=== PATIENT | female | born 1940 | race Caucasian/White ===

== ENCOUNTER → 2017-11-16 | Outpatient (CLI) | payer MEDICARE | END | disposition home or self-care (01) | LOC: LABWHC1 17:02 | PROVIDERS: ATTEND Orthopaedic Surgery | DX: Z01.812 Encounter for preprocedural laboratory examination (principal) | CPT/HCPCS: 87070 ==

== ENCOUNTER 2017-12-18 06:06 | Inpatient (IN) | payer MEDICARE ==
[2017-12-11 11:59] VITALS: BMI 40.9
--- NOTE | 2017-12-17 09:31 | HP ---
HISTORY AND PHYSICAL CHIEF COMPLAINT: Right shoulder pain. HISTORY OF PRESENT ILLNESS: The patient is a 77-year-old, right-hand dominant, retired female who presents with progressive right shoulder pain, worsening over the past several years. She is having pain with overhead use and at night. It severely limits her. She has tried therapy in addition to medications with only partial temporary relief. She has a history of a previous right shoulder arthroscopy in December of 2013. PAST MEDICAL HISTORY: Significant for arthritis, hypertension, cervical cancer, renal insufficiency, and COPD. PAST SURGICAL HISTORY: Significant for appendectomy, hysterectomy, left wrist pinning, right shoulder arthroscopy. CURRENT MEDICATIONS: 1. Aspirin. 2. Losartan. 3. Simvastatin. 4. Nifedipine. ALLERGIES: SULFA and ERYTHROMYCIN. FAMILY HISTORY: Significant for heart disease and cancer. SOCIAL HISTORY: Negative for current tobacco or alcohol use. REVIEW OF SYSTEMS: Sixteen point review of systems otherwise reviewed and is noncontributory. PHYSICAL EXAMINATION: On examination, patient is approximately 5 foot 5, 245 pounds of endomorphic habitus. HEENT exam is nonfocal. Neck is supple. On examination of her right shoulder, she is tender about the anterior subacromial space. She has mild subacromial crepitus. Active range of motion, forward elevation 90 degrees, external rotation with arm at side 45 degrees, internal rotation to the buttock. Passively I am able to forward elevate her to 100 degrees. Motor strength is 5-/5 for external rotation with arm at side and abduction. Impingement test, Neer test, and Speed tests are positive. Her distal neurovascular exam otherwise appears intact in the right upper extremity. X-rays of the right shoulder obtained in the office show severe glenohumeral joint osteoarthrosis with flattening of the humeral head. The humeral head to acromial distance appears to be maintained. IMPRESSION: Right severe glenohumeral joint osteoarthrosis. RECOMMENDATIONS: I talked to the patient at length regarding her condition and treatment options. At this point, she is quite symptomatic and opts to proceed with surgery. We will plan to proceed with right total shoulder arthroplasty versus reverse total shoulder arthroplasty depending on the integrity of her rotator cuff. Risks and benefits were discussed at length in layman's terms. MMODL / IJN: [id number] /
[~2017-12-18 06:06] MED LIST: DEXAMETHASONE SOD PHOSPHATE 10 MG/ML 1 ML VIAL IV ONE; MIDAZOLAM 2 MG/2 ML VIAL IV PRN; ONDANSETRON 4 MG/2 ML VIAL IVP ONE; ceFAZolin IN SWFI 2 GM/20 ML SYRINGE IVP ONE
[2017-12-18] MEDS: LACTATED RINGERS 1,000 ML IV SCH (07:35)
[2017-12-18] MEDS ORDERED: LIDOCAINE 1% 20 ML VIAL (10MG/ML) FOR IV START INTRADERMA ONE (07:35)
[2017-12-18] MEDS ORDERED: NEOSTIGMINE 1 MG/ML 10 ML VIAL ONE (08:07)
[2017-12-18] MEDS ORDERED: GLYCOPYRROLATE 0.2 MG/ML 2 ML VIAL ONE (08:07)
[2017-12-18] MEDS ORDERED: PROPOFOL 10 MG/ML 20 ML VIAL IV ONE (08:07)
[2017-12-18] MEDS ORDERED: ROCURONIUM BROMIDE 10 MG/ML 10 ML VIAL IV ONE (08:07)
[2017-12-18] MEDS ORDERED: diphenhydrAMINE 50 MG/ML 1 ML VIAL ONE (08:07)
[2017-12-18] MEDS ORDERED: LIDOCAINE 1% INJ 10MG/ML (20 ML MDV) ONE (08:07)
[2017-12-18] MEDS ORDERED: PHENYLEPHRINE-0.9% NACL SYG 1 MG/10 ML SYRINGE ONE (08:07)
[2017-12-18] MEDS ORDERED: HYDROmorphone (PF) 1 MG/ML ONE (08:07)
[2017-12-18] MEDS ORDERED: SUCCINYLCHOLINE CHLORIDE 100 MG/5 ML SYR IV ONE (08:07)
[2017-12-18] MEDS ORDERED: fentaNYL (PF) 50 MCG/ML 2 ML AMP ONE (08:07)
[2017-12-18] MEDS ORDERED: ceFAZolin 3,000 MG in SODIUM CHLORIDE 0.9% IRRIGATIO 3,000 ML IRRIGATION ONE (08:30)
[2017-12-18] MEDS ORDERED: ONDANSETRON 4 MG/2 ML VIAL IVP PRN (10:34)
[2017-12-18] MEDS ORDERED: HYDROmorphone 1 MG/ML 1 ML SYRINGE IVP PRN (10:34)
[2017-12-18] MEDS: HYDROmorphone 0.5 MG/0.5 ML SYRINGE IVP PRN ×2 (11:02→11:11)
--- NOTE | 2017-12-18 11:06 | P.OP ---
Date of Procedure: 12/18/17 Preoperative Diagnosis: Right severe glenohumeral joint osteoarthrosis Postoperative Diagnosis: Same Procedure(s) Performed: Right reverse total shoulder arthroplasty Implants: Depuy Xtend size 12 press-fit humeral stem, size 1 eccentric epiphysis, 38 mm + 6 articular surface, 38 mm standard glenosphere with standard baseplate Anesthesia: CONNIE Surgeon: Pietro Norris Energy Management Specialist #1: Po Knox Estimated Blood Loss (ml): 200 Pathology: other (Humeral head) Condition: stable Disposition: PACU Indications for Procedure: The patient's a 77-year-old female who presents with progressive right shoulder pain secondary to osteoarthrosis despite conservative measures. A discussion of the risks and benefits of operative intervention versus continued conservative measures was made with the patient. She opted to proceed with surgery. Operative risks to include infection, neurovascular injury, development of blood clots, possible dislocation, possible component loosening and need for subsequent procedures was discussed. Informed consent was obtained. Operative Findings: As below Description of Procedure: The patient was brought to the operating room, and after induction general anesthesia was placed in a beachchair position. The bony prominences were appropriately padded. The right upper extremity was prepped and draped in normal fashion. A deltopectoral incision was made just lateral to the coracoid process and the deltopectoral groove. The skin was incised sharply. Subcutaneous tissues were divided bluntly. Electrocautery was used for hemostasis. The cephalic vein was identified and gently retracted laterally with the deltoid. The deltopectoral interval was bluntly developed. The upper one third of the pectoralis major was released to help facilitate exposure. The clavipectoral fascia was opened and the conjoined tendon gently retracted medially with the deltoid retracted laterally. Subdeltoid adhesions were bluntly dissected. The biceps was identified. The rotator interval was opened. The biceps was released and allowed to retract distally. A lesser tuberosity osteotomy was performed to help facilitate exposure. This was tagged with #2 Ethibond suture. The previous rotator cuff repair grossly overall. Intact. The head was then exposed. The inferior capsule was released to facilitate exposure. Significant collapse the head was noted. A starting hole was made in line with the Kress shaft and the canal reamed up to 12 mm. There is good distal fit and chatter. The cutting guide was then placed. A planned on 20 of retroversion. The humeral head cut was then made. The bone was removed. The inferior osteophytes were carefully removed as well. Attention was then paid towards the glenoid. A retractors placed posteriorly and the labrum was released from the 12:00 to 6 o'clock position anteriorly. A guidepin was placed slightly inferior tilting slightly inferior. The glenoid was then reamed down to a bleeding bony surface. Peripheral osteophytes were carefully removed. The central peg hole was drilled. A standard base plate was inserted. A superior and inferior screw was then inserted of the appropriate length. Good purchase was obtained. These were locking. A posterior screw the appropriate length it was nonlocking was placed. There was good purchase. The gleno sphere was inserted over a guide. This was fully seated. Attention was then paid towards preparing the proximal humerus. The broach was inserted and 20 of retroversion. The metaphysis was reamed with a size 1 reamer. A trial size 12 humeral stem with a size 1 epiphysis was then placed. I trialed with a 38 mm +6 trial articular surface was placed and the shoulder was gently reduced. It was taken through range of motion. It was felt to be stable in flexion and extension with internal and external rotation. I felt there was adequate soft tissue tension judging off the conjoined tendon. The shoulder was gently dislocated. The trial components were then removed. The humeral stem was again inserted in 20 of retroversion and was fully seated. There is good rotational stability. I did previously place #2, Ethibond suture for reattachment of the lesser tuberosity. The 38 mm +6 articular surface was gently impacted. The shoulder was again gently reduced. Again it was felt to be stable in flexion and extension with internal and external rotation. Again I felt there was adequate druze of soft tissue tension. Pulsatile lavage was utilized. The lesser tuberosity was repaired with #2 Ethibond suture. The deltopectoral interval was closed with interrupted 2-0 Vicryl sutures. The subcutaneous tissues were reapproximated with interrupted 2-0 Vicryl sutures. The skin was reprepped with 3-0 subcuticular Prolene suture. Steri-Strips were applied. A sterile dressing was applied in addition to a sling. The patient was awoken from general anesthesia and transferred to the recovery room in good condition. Manas YOUNG assisted during the major components of this case to include exposure, component insertion, positioning, and closure. No complications were incurred. Sponge and needle counts were correct at the end of the case. Blood loss was estimated at 200 mL.
--- NOTE | 2017-12-18 11:14 | XR ---
EXAMINATION TYPE: XR shoulder complete RT DATE OF EXAM: 12/18/2017 COMPARISON: NONE HISTORY: Postsurgical TECHNIQUE: One view is submitted. FINDINGS: Postsurgical change appears in near-anatomic alignment. Soft tissue edema and emphysema noted. IMPRESSION: 1. Postsurgical changes
--- NOTE | 2017-12-18 13:53 | P.ONQ ---
Anesthesiology Proc Note - PNB - Peripheral Nerve Block Performed Right Interscalene Single Time Out Performed: Yes Procedure Start Time: :30 Procedure Stop Time: :34 Indication: Acute Post-Operative Pain, Requested by physician Sedation Type: Sedate with meaningful contact maintained Preparation: Sterile Prep Position: Supine Needle Size: 50mm (2") Needle Gauge: 21 Technique: Ultrasound Injectate: 0.5% Ropivacaine (see comment for volume) (ropi .5% 30cc) Blood Aspirated: No Pain Paresthesia on Injection Noted: No Resistance on Injection: Normal Events: Uneventful and Well Tolerated
[2017-12-18] MEDS: ceFAZolin IN SWFI 2 GM/20 ML SYRINGE IVP SCH ×2 (15:56→23:24)
[2017-12-18] MEDS: FAMOTIDINE 20 MG TAB PO SCH ×2 (15:56→21:04)
--- NOTE | 2017-12-18 16:03 | CONS ---
CONSULTATION DATE OF SERVICE: 12/18/2017. REASON FOR CONSULTATION: Advice regarding hypertension, and multiple medical issues requested by Dr. Norris. HISTORY OF PRESENT ILLNESS: This 77-year-old woman with a past medical history of multiple medical problems including COPD, GERD, hypertension, hyperlipidemia, history of DJD being followed by Dr. Tito Cortez in the outpatient setting underwent right total shoulder arthroplasty by Dr. Norris. The patient tolerated the procedure well and the patient being closely monitored. There is no history of fever, rigors or chills. No history of headache, loss of consciousness, seizures. PAST MEDICAL HISTORY: COPD, GERD, hypertension, hyperlipidemia, history of DJD, history pneumonia, history of appendectomy. MEDICATIONS: Prior to admission home medications are: 1. Simvastatin 20 mg q.h.s. 2. Zantac 150 mg p.o. b.i.d. 3. Nifedipine ER 90 mg q.a.m. 4. Magnesium oxide 400 mg b.i.d. 5. Cozaar 100 mg q.h.s. 6. Tylenol 1000 mg q.6h p.r.n. 7. Eliquis 2.5 mg b.i.d. ALLERGIES: noted. FAMILY HISTORY: Family history of multiple myelomas, skin cancer. SOCIAL HISTORY: Previous history of smoking. No history of current smoking or alcohol intake. REVIEW OF SYSTEMS: ENT: No diminished hearing or vision. CARDIOVASCULAR is no angina or palpitations. RESPIRATORY: No cough or hemoptysis. GI: No nausea or vomiting. no dysuria or hematuria. NERVOUS SYSTEM: No numbness or weakness. ALLERGY/IMMUNOLOGY: No asthma or hayfever. MUSCULOSKELETAL: As mentioned earlier. HEMATOLOGY/ONCOLOGY: As mentioned earlier. ENDOCRINE: No history of diabetes or hypothyroidism. CONSTITUTIONAL: As mentioned earlier. Dermatology: Negative. Rheumatology: Negative. Psychiatry: As mentioned earlier. PHYSICAL EXAMINATION: GENERAL: Alert, oriented x3. VITAL SIGNS: Pulse 62, blood pressure 140/62, respirations 16, temperature 97 degrees, pulse ox 97% on 3 L. HEENT: Conjunctivae normal. Oral mucosa moist. Neck: Neck is no jugular venous distention. No carotid bruit. No lymph node enlargement. CARDIOVASCULAR: S1, S2 muffled. RESPIRATORY: Breath sounds diminished in the bases. No rhonchi. No crackles. ABDOMEN: Soft, nontender. No mass palpable. LEGS: No edema and no swelling. NERVOUS SYSTEM: Higher functions as mentioned earlier. Moves all four limbs. No focal deficits Skin: No ulcers. No rashes. No bleeding. Shoulder status post right shoulder arthroplasty. ASSESSMENT: 1. Status post right total shoulder arthroplasty. 2. History of hypertension. 3. Hyperlipidemia. 4. History of gastroesophageal reflux disease. 5. Chronic obstructive pulmonary disease. 6. History of degenerative joint disease. 7. History of pneumonia. 8. History of cervical cancer. 9. History of adenoidectomy. 10.History of appendectomy. 11.Remote history of nicotine dependence. RECOMMENDATIONS AND DISCUSSION: This 77-year-old woman who presented with multiple medical issues, we will monitor the patient closely. Continue the current medications, management and symptomatic treatment. Otherwise, I would recommend resume the home medications. DVT prophylaxis. Incentive spirometry. Resume the home medications. We will follow the patient closely. The patient may be asked to follow up with primary physician closely after discharge. Thank you, Dr. Norris, for letting us participate in the care of this patient. MMODL / IJN: [id number] / MTDD
[2017-12-18] MEDS: MAGNESIUM OXIDE 400 MG TAB PO SCH (21:04)
[2017-12-18] MEDS: ATORVASTATIN 10 MG TAB PO SCH (21:04)
[2017-12-18] MEDS: LOSARTAN 50 MG TAB PO SCH (21:04)
[2017-12-18] MEDS: BENZOCAINE/MENTHOL LOZENG 1 EACH LOZENGE MUCOUS MEM PRN (21:06)
[2017-12-18] MEDS: HYDROcodone/APAP 5-325MG 1 EACH TAB PO PRN (21:10)
[2017-12-19 01:12] VITALS: RESP 16
[2017-12-19] MEDS: HYDROcodone/APAP 5-325MG 1 EACH TAB PO PRN ×3 (03:31→20:05)
[2017-12-19] MEDS: HYDROmorphone 1 MG/ML 1 ML SYRINGE IVP PRN ×3 (05:23→11:57)
[2017-12-19] MEDS: BENZOCAINE/MENTHOL LOZENG 1 EACH LOZENGE MUCOUS MEM PRN ×2 (05:27→15:54)
[2017-12-19 07:44] LABS: Basophils % (A) 0 %; Eosinophils % (A) 0 %; HCT 37.5 % (34.0-46.0); HGB 11.8 gm/dL (11.4-16.0); Lymphocytes # (A) 1.2 k/uL (1.0-4.8); Lymphocytes % (A) 13 %; MCH 30.8 pg (25.0-35.0); MCHC 31.4 g/dL (31.0-37.0); MCV 97.9 fL (80.0-100.0); Mean Platelet Volume 7.4; Monocytes # (A) 0.8 k/uL (0-1.0); Monocytes % (A) 8 %; Neutrophils # (A) 7.1 k/uL (1.3-7.7); Neutrophils % (A) 78 %; Platelet Count 138 k/uL (150-450); RBC 3.83 m/uL (3.80-5.40); RDW 14.4 % (11.5-15.5); WBC 9.2 k/uL (3.8-10.6)
[2017-12-19] MEDS: NIFEdipine XL 90 MG TAB.ER.24 PO SCH (08:33)
[2017-12-19] MEDS: RIVAROXABAN 10 MG TAB PO SCH (08:33)
[2017-12-19] MEDS: FAMOTIDINE 20 MG TAB PO SCH ×2 (08:34→20:04)
[2017-12-19] MEDS: MAGNESIUM OXIDE 400 MG TAB PO SCH ×2 (08:34→20:05)
[2017-12-19] MEDS: LACTATED RINGERS 1,000 ML IV SCH (08:38)
--- NOTE | 2017-12-19 11:01 | P.PN ---
Subjective Progress Note Date: 12/19/17 Principal diagnosis: Status post reverse right total shoulder arthroplasty Patient seen today resting in her hospital bed, she appears comfortable. She does note some increase in pain when she moves. She denies any headaches, lightheadedness, chest pain or shortness of breath. Objective - Vital Signs Vital signs: Vital Signs Temp 98.6 F 12/19/17 07:00 Pulse 71 12/19/17 07:00 Resp 16 12/19/17 07:00 BP 150/75 12/19/17 07:00 Pulse Ox 96 12/19/17 07:00 Intake & Output 12/18/17 12/19/17 12/19/17 18:59 06:59 18:59 Intake Total 1421 200 180 Output Total 300 1400 Balance 1121 -1200 180 Weight 111.584 kg Intake: IV 921 Intake, IV Titration 200 Amount Lactated Ringers 1,000 ml 200 @ 50 mls/hr IV .Q20H ABRAN Rx#:[id number] Oral 500 180 Output: Urine 100 1400 Estimated Blood Loss 200 Other: Voiding Method Indwelling Catheter Indwelling Catheter Indwelling Catheter - Exam Right upper extremity: Postoperative bandages in place, obvious ecchymosis and soft tissue swelling present. She is able to wiggle all the fingers. Her sensation to light touch throughout the extremity is intact. Her radial pulses 2+. - Labs CBC & Chem 7: 12/19/17 06:56 Labs: Abnormal Lab Results - Last 24 Hours (Table) 12/19/17 Range/Units 06:56 Plt Count 138 L (150-450) k/uL Assessment and Plan Plan: Assessment: Postoperative day 1 status post reverse right total shoulder arthroplasty Plan: Pain control, continue use of oral medication GI and DVT prophylaxis, continue current medication Daily dressing changes/ice the upper extremity Encourage incentive spirometer Medical recommendations Discharge planning: Patient will be likely discharged home tomorrow Time with Patient: Less than 30
[2017-12-19] MEDS ORDERED: HYDROmorphone 2 MG TAB PO PRN (13:20)
[2017-12-19] MEDS: HYDROmorphone 2 MG TAB PO PRN (15:55)
--- NOTE | 2017-12-19 17:19 | PN ---
PROGRESS NOTE DATE OF SERVICE: 12/19/2017. INTERVAL HISTORY: This 77-year-old woman who was admitted after right shoulder arthroplasty is still complaining of right shoulder pain. No chest pain. No palpitations. No fever. PHYSICAL EXAM: Alert and oriented x3. Pulse 71, blood pressure 150/75, respirations 16, temperature 98.6, pulse ox 96% on room air. HEENT: Conjunctivae normal. Oral mucosa moist. NECK: No jugular venous distention. No carotid bruits. No lymph node enlargement. CARDIOVASCULAR: S1, S2 muffled. RESPIRATORY: Breath sounds diminished in the bases. No rhonchi. No crackles. ABDOMEN: Soft, nontender. LEGS: No edema. No swelling. Status post right shoulder arthroplasty. LABS: WBC 9, hemoglobin 11.8. ASSESSMENT: 1. Status post right total shoulder arthroplasty. 2. History of hypertension. 3. Hyperlipidemia. 4. Gastroesophageal reflux disease. 5. Chronic obstructive pulmonary disease. 6. History of degenerative joint disease. 7. History of pneumonia. 8. Cervical cancer. 9. History of adenoidectomy. 10.History of appendectomy. 11.Remote history of nicotine dependence. 12.Mild thrombocytopenia. RECOMMENDATIONS AND DISCUSSION: Recommend to continue current medical management and symptomatic treatment. Continue to follow up with DVT prophylaxis and pain management. Closely follow with Orthopedic Surgery. Further recommendations to follow. MMODL / IJN: [id number] /
[2017-12-19] MEDS: ATORVASTATIN 10 MG TAB PO SCH (20:04)
[2017-12-19] MEDS: LOSARTAN 50 MG TAB PO SCH (20:04)
[2017-12-20] MEDS: HYDROmorphone 2 MG TAB PO PRN (00:32)
[2017-12-20] MEDS: HYDROcodone/APAP 5-325MG 1 EACH TAB PO PRN ×2 (03:08→10:59)
[2017-12-20] MEDS: LACTATED RINGERS 1,000 ML IV SCH (04:22)
[2017-12-20] MEDS: RIVAROXABAN 10 MG TAB PO SCH (08:47)
[2017-12-20] MEDS: MAGNESIUM OXIDE 400 MG TAB PO SCH (08:47)
[2017-12-20] MEDS: NIFEdipine XL 90 MG TAB.ER.24 PO SCH (08:47)
[2017-12-20] MEDS: FAMOTIDINE 20 MG TAB PO SCH (08:47)
[2017-12-20 08:53] VITALS: BP 128/67; PULSE 94; TEMP 98.5
--- NOTE | 2017-12-20 09:55 | P.DS ---
Providers Date of admission: 12/18/17 06:06 Expected date of discharge: 12/20/17 Attending physician: Pietro Norris Consults: 12/18/17 10:37 Consult Physician Routine Consulting Provider: Mouna Alonso Consult Reason/Comments: Medical Management Do you want consulting provider notified?: Yes Primary care physician: Tito Almanzar [facility] Course: Date of admission: 12/18/2017 Date of discharge: 12/20/2017 Admission diagnosis: Status post reverse right total shoulder arthroplasty Discharge diagnosis: Same Attending physician: Dr. Norris Surgical procedures: Reverse right total shoulder arthroplasty Brief history: Patient is a 77-year-old female with a history of progressive primary right shoulder osteoarthritis. At this point patient has failed conservative treatment measures and has opted to proceed with a elective reverse right total shoulder arthroplasty. Hospital course: Details of patient's surgery can be found in operative report. Patient tolerated the procedure well and was subsequently transported to orthopedic floor. Patient's orthopeidc and medical care was provided daily. Patient had daily laboratory tests performed for evaluation of overall blood counts. Patient had daily physical therapy to include strengthening range of motion as well as education with walker ambulation. Patient was treated with Xarelto for their postoperative DVT prophylaxis during their inpatient stay. Patient was noted to have a relatively uneventful postoperative course. Patient reported satisfactory pain control with oral pain medications by postoperative day 0. Patient showed satisfactory progress with physical therapy. Patient moved steadily through the program and had no difficulty meeting the goals by postoperative day 2. Given patient's otherwise satisfactory course and having met physical therapy goals, plan is to discharge patient home on postoperative day 2. Discharge condition/disposition: Patient will be discharged home in stable condition. Discharge medications: Instructions are given on resumption of patient's normal daily medications per primary care recommendation, in addition patient will be prescribed [place] 5mg/325mg, Eliquis 2.5mg. Discharge instructions: 1. Wound care and infection precautions, keep incision dry and covered while showering, no lotions, creams, moisturizers. No soaking, tubs, pools, hottubs. Do not scrub over the incision. 2. Utilize arm sling 3. Ice and elevate when necessary. Do not exceed 20 minutes per hour with ice pack. Utilize compression sleeve until seen at first follow up appointment. 4. Visiting nursing care. 5. Pain meds and anticoagulants per prescription. 6. Pain medication has potential to cause constipation. Increase oral fluid and fiber intake. Contact primary care provider if you have not had a bowel movement within 48 hours after discharge 7. No anti-inflammatory medication until discussed at first post operative visit, this including Motrin, Aleve, Mobic, Diclofenac. 8. Follow up in office at 2 weeks postop with Manas Knox PA-C 9. Follow up with your primary care doctor 7-10 days after discharge. 10. Contact [facility] with any questions, . Procedures: Reverse right total shoulder arthroplasty Patient Condition at Discharge: Good Plan - Discharge Summary Discharge Rx Participant: Yes New Discharge Prescriptions: New Apixaban [Eliquis] 2.5 mg PO BID #28 tab Hydrocodone/Acetaminophen [[place] 5-325] 1 - 2 each PO Q6HR PRN #56 tab PRN Reason: Pain No Action Losartan [Cozaar] 100 mg PO HS Acetaminophen Tab [Tylenol] 1,000 mg PO Q6H PRN PRN Reason: Pain Simvastatin 20 mg PO HS NIFEdipine [NIFEdipine ER] 90 mg PO QAM Ranitidine HCl [Zantac] 150 mg PO BID Magnesium Oxide 400 mg PO BID Discharge Medication List Acetaminophen Tab [Tylenol] 1,000 mg PO Q6H PRN 12/18/13 [History] Losartan [Cozaar] 100 mg PO HS 12/18/13 [History] NIFEdipine [NIFEdipine ER] 90 mg PO QAM 12/18/13 [History] Ranitidine HCl [Zantac] 150 mg PO BID 12/18/13 [History] Simvastatin 20 mg PO HS 12/18/13 [History] Magnesium Oxide 400 mg PO BID 12/11/17 [History] Apixaban [Eliquis] 2.5 mg PO BID #28 tab 12/18/17 [Rx] Hydrocodone/Acetaminophen [[place] 5-325] 1 - 2 each PO Q6HR PRN #56 tab 12/20/17 [Rx] Follow up Appointment(s)/Referral(s): Tito Almanzar DO [Primary Care Provider] - 12/27/17 9:00 am Po Knox PAC [PHYSICIAN PROMOTIONS EXECUTIVE PRODUCER] - 01/02/18 2:30 pm Activity/Diet/Wound Care/Special Instructions: Orthopedic discharge instructions: 1. Keep incision dry and covered while showering 2. Utilize arm sling 3. Ice the extremity often 4. Anticoagulation per prescription 5. Pain medication as needed 6. Follow-up [facility] in 2 weeks Discharge Disposition: HOME WITH HOME HEALTH SERVICES
--- NOTE | 2017-12-20 09:57 | P.PN ---
Subjective Progress Note Date: 12/20/17 Principal diagnosis: Status post reverse right total shoulder arthroplasty Patient seen today resting in her hospital bed, she appears comfortable. She denies any headaches, lightheadedness, chest pain or shortness of breath. Objective - Vital Signs Vital signs: Vital Signs Temp 98.5 F 12/20/17 08:51 Pulse 94 12/20/17 08:51 Resp 16 12/20/17 08:51 BP 128/67 12/20/17 08:51 Pulse Ox 92 L 12/20/17 01:21 Intake & Output 12/19/17 12/20/17 12/20/17 18:59 06:59 18:59 Intake Total 860 Output Total 650 Balance 210 Intake: Intake, IV Titration 400 Amount Lactated Ringers 1,000 ml 400 @ 50 mls/hr IV .Q20H ABRAN Rx#:[id number] Oral 460 Output: Urine 650 Other: Voiding Method Indwelling Catheter # Voids 2 1 - Exam Right upper extremity: Incision is clean, dry and intact. Obvious ecchymosis and soft tissue swelling present. She is able to wiggle all the fingers. Her sensation to light touch throughout the extremity is intact. Her radial pulses 2+. - Labs CBC & Chem 7: 12/19/17 06:56 Assessment and Plan Plan: Assessment: Postoperative day #2 status post reverse right total shoulder arthroplasty Plan: Pain control, continue use of oral medication GI and DVT prophylaxis, continue current medication Daily dressing changes/ice the upper extremity Encourage incentive spirometer Medical recommendations Discharge planning: Plan for discharge home today Time with Patient: Less than 30
--- NOTE | 2017-12-20 15:47 | PN ---
PROGRESS NOTE DATE OF SERVICE: 12/20/2017 This 77-year-old woman admitted after right shoulder arthroplasty improved significantly. No chest pain. No palpitations. No fever. No cough. The patient is using incentive spirometry. Orthopedic Surgery is planning discharge today. PHYSICAL EXAM: Alert, oriented x3. Pulse 94, blood pressure 198/69, respirations 16, temperature 98.5, pulse ox 90% on room air. HEENT: Conjunctivae normal. Oral mucosa is moist. NECK: No jugular venous distention. No carotid bruit. No lymph node enlargement. CARDIOVASCULAR: S1, S2. RESPIRATORY: Breath sounds diminished in the bases. No rhonchi. No crackles. ABDOMEN: Soft, nontender. NERVOUS SYSTEM: No focal deficit. Right shoulder, status post right shoulder arthroplasty. LABS: CBC noted. ASSESSMENT: 1. Status post right shoulder arthroplasty. 2. History of hypertension. 3. Hyperlipidemia. 4. Gastroesophageal reflux disease. 5. Chronic obstructive pulmonary disease. 6. History of degenerative joint disease. 7. History of pneumonia. 8. History of cervical cancer. 9. History of adenoidectomy. 10.History of appendectomy. 11.Remote history of nicotine dependence. 12.Mild thrombocytopenia. RECOMMENDATIONS AND DISCUSSION: I recommend to continue current management and symptomatic treatment. Followup labs with the primary physician. Otherwise, continue the resume the rest of the home medications. Further recommendations to follow. MMODL / IJN: [id number] /
== END 2017-12-20 15:05 | disposition home health service (06) | DRG 483 ==
LOC: 2ORMAIN 06:06 → 3SUR 10:32
PROVIDERS: ADMIT Orthopaedic Surgery; ATTEND Orthopaedic Surgery
PROC: 0RRJ00Z Replacement of Right Shoulder Joint with Reverse Ball and Socket Synthetic Substitute, Open Approach (ICD-10-PCS; principal; 2017-12-18 08:00)
DX: M19.011 Primary osteoarthritis, right shoulder (principal); D69.6 Thrombocytopenia, unspecified; E78.5 Hyperlipidemia, unspecified; I10 Essential (primary) hypertension; J44.9 Chronic obstructive pulmonary disease, unspecified; K21.9 Gastro-esophageal reflux disease without esophagitis; Z80.8 Family history of malignant neoplasm of other organs or systems; Z85.41 Personal history of malignant neoplasm of cervix uteri; Z87.01 Personal history of pneumonia (recurrent); Z87.891 Personal history of nicotine dependence; Z90.49 Acquired absence of other specified parts of digestive tract; Z90.710 Acquired absence of both cervix and uterus; Z79.82 Long term (current) use of aspirin; Z79.899 Other long term (current) drug therapy; Z88.1 Allergy status to other antibiotic agents; Z88.2 Allergy status to sulfonamides
CPT/HCPCS: 64415; 85025; 88300

== ENCOUNTER → 2020-01-13 | Outpatient (CLI) | payer MEDICARE ==
--- NOTE | 2020-01-13 11:47 | XR ---
EXAMINATION TYPE: XR chest 2V DATE OF EXAM: 01/13/2020 COMPARISON: Chest x-ray August 23, 2012 HISTORY: History of COPD. Presurgical study. TECHNIQUE: Frontal and lateral views of the chest are obtained. FINDINGS: There is left basilar opacity redemonstrated. Right lung remains clear. No pleural effusio n or pneumothorax seen bilaterally. The cardiac silhouette size is stable and upper limits of normal. Metallic hardware right shoulder surgery new from 2012 partially imaged on this study.. IMPRESSION: Chronic left basilar opacity favoring scarring and/or atelectasis
[2020-01-13 13:21] LABS: Basophils % (A) 1 %; Eosinophils # (A) 0.1 k/uL (0-0.7); Eosinophils % (A) 2 %; HCT 44.9 % (34.0-46.0); Hypochromasia Slight; Lymphocytes # (A) 1.1 k/uL (1.0-4.8); Lymphocytes % (A) 18 %; MCH 31.9 pg (25.0-35.0); MCHC 31.1 g/dL (31.0-37.0); MCV 102.4 fL (80.0-100.0); Macrocytosis Slight; Mean Platelet Volume 8.5; Monocytes # (A) 0.5 k/uL (0-1.0); Monocytes % (A) 9 %; Neutrophils # (A) 4.1 k/uL (1.3-7.7); Neutrophils % (A) 69 %; Platelet Count 164 k/uL (150-450); RBC 4.39 m/uL (3.80-5.40); RDW 12.5 % (11.5-15.5)
[2020-01-13 13:40] LABS: Potassium 5.5 mmol/L (3.5-5.1)
== END | disposition home or self-care (01) ==
LOC: LABPAT 11:10
PROVIDERS: ATTEND Orthopaedic Surgery
DX: Z01.818 Encounter for other preprocedural examination (principal); Z01.812 Encounter for preprocedural laboratory examination; R91.8 Other nonspecific abnormal finding of lung field; M17.12 Unilateral primary osteoarthritis, left knee; Z79.01 Long term (current) use of anticoagulants
CPT/HCPCS: 36415; 71046; 80051; 85025; 85610; 87070

== ENCOUNTER 2020-02-03 06:14 | Observation (INO) | payer MEDICARE ==
[2020-01-30 17:16] VITALS: BMI 42.5
--- NOTE | 2020-02-02 10:33 | HP ---
HISTORY AND PHYSICAL CHIEF COMPLAINT: Left knee pain. HISTORY OF PRESENT ILLNESS: The patient is an 79-year-old retired female who presents with progressive left knee pain, worsening over the past 2 years. She previously had an arthroscopy in 2011. She notes medial and lateral pain, worse with weightbearing activities. She notes it gives out on her. She has tried medications in addition to injections and therapy for prolonged periods of time without much relief. She has also tried modifying her activities. She does use a walker. PAST MEDICAL HISTORY: Significant for arthritis, hypercholesterolemia, renal disease, and COPD. PAST SURGICAL HISTORY: Significant for right total knee arthroplasty, left knee arthroscopy, right reverse total shoulder arthroplasty. Hysterectomy and appendectomy. FAMILY HISTORY: Significant for heart disease and cancer. SOCIAL HISTORY: Significant for social alcohol use. 16 POINT REVIEW OF SYSTEMS: Otherwise reviewed and is noncontributory. CURRENT MEDICATIONS: Aspirin, losartan, simvastatin, nifedipine and omeprazole. She notes allergies to SULFA, ERYTHROMYCIN and sensitivity to NITROGLYCERIN. PHYSICAL EXAMINATION: On examination, the patient is approximately 5 foot 5, 255 pounds of endomorphic habitus. HEENT: Exam is nonfocal. NECK: Supple. She has painless passive motion of her left hip. Straight leg raise is negative. Active motion left knee -10 to 105 degrees of flexion. She has a moderate effusion. She is tender about the medial and lateral joint line. Collaterals are stable, Maria Elena is negative, Conchita's is equivocal. She has genu varum alignment. Her distal neurovascular exam appears intact in the left lower extremity. Weightbearing notch, lateral Merchant views of left knee obtained in the office show severe tricompartmental osteoarthrosis with [id number] changes, subchondral sclerosis and severe joint space narrowing. IMPRESSION: 1. Left knee severe tricompartmental osteoarthrosis. 2. Renal disease. 3. COPD. RECOMMENDATIONS: I talked to the patient at length regarding her condition and treatment options. At this point, she remains quite symptomatic and limited because of pain related to her osteoarthrosis despite conservative measures. After a thorough discussion, she opts to proceed with surgery. We will plan to proceed with left total knee arthroplasty. Risks and benefits were discussed at length in layman's terms. We will institute DVT prophylaxis postoperatively. MMODL / IJN: [id number] /
[~2020-02-03 06:14] MED LIST changes: +ACETAMINOPHEN TAB 500 MG TAB PO ONE; -DEXAMETHASONE SOD PHOSPHATE 10 MG/ML 1 ML VIAL IV ONE; +LACTATED RINGERS 1,000 ML IV SCH; +LIDOCAINE 1% (10MG/ML) FOR IV START INTRADERMA PRN; +MELOXICAM 7.5 MG TAB PO ONE; -MIDAZOLAM 2 MG/2 ML VIAL IV PRN; +TRANEXAMIC ACID 1,000 MG in SODIUM CHLORIDE 0.9% 100 ML IVPB ONE; -ceFAZolin IN SWFI 2 GM/20 ML SYRINGE IVP ONE
[2020-02-03] MEDS ORDERED: SODIUM CHLORIDE 0.9% 1,000 ML IV ONE (07:45)
[2020-02-03] MEDS ORDERED: fentaNYL (PF) 50 MCG/ML 2 ML AMP IVP ONE (07:50)
[2020-02-03] MEDS ORDERED: PROPOFOL 10 MG/ML 20 ML VIAL IV ONE (08:05)
[2020-02-03] MEDS ORDERED: SODIUM CHLORIDE 0.9% 100 ML BAG ONE (08:05)
[2020-02-03] MEDS ORDERED: TRANEXAMIC ACID 1,000 MG/10 ML VIAL ONE (08:05)
[2020-02-03] MEDS ORDERED: MIDAZOLAM 2 MG/2 ML VIAL ONE (08:05)
--- NOTE | 2020-02-03 08:14 | P.ANPRN ---
Procedure Note - Anesthesia - Nerve Block Performed Left Adductor Canal Infusion Time Out Performed: Yes Date of Procedure: 02/03/20 Procedure Start Time: 07:49 Procedure Stop Time: 08:06 Location of Patient: PreOp Indication: Acute Post-Operative Pain, Requested by Surgeon Specifically requested for management of pain by : Pietro Norris Sedation Type: Sedate with meaningful contact maintained Position: Supine Catheter: Indwelling Needle Types: Pajunk Needle Gauge: 18 Ultrasound used to visualize needle placement: Yes Ultrasound used to observe medication spread: Yes Injectate: 0.5% Ropivacaine (see comment for volume) Blood Aspirated: No Pain Paresthesia on Injection Noted: No Resistance on Injection: Normal Image Stored and Saved: Yes Events: Uneventful and Well Tolerated
[2020-02-03] MEDS ORDERED: ROPIVACAINE 246.25 MG, EPINEPHrine 0.5 MG, KETOROLAC 30 MG, cloNIDine HCL/PF 80 MCG, WA... MISCELLANE ONE ×5 (08:41)
[2020-02-03] MEDS ORDERED: ceFAZolin 3,000 MG in SODIUM CHLORIDE 0.9% IRRIGATIO 3,000 ML IRRIGATION ONE (08:42)
[2020-02-03] MEDS ORDERED: ROPIVACAINE 0.2%-NS ON-Q PUMP 1,090 MG, EMPTY PAIN BALL 1 EACH MISCELLANE PRN (09:33)
[2020-02-03] MEDS ORDERED: LACTATED RINGERS 1,000 ML IV ONE (09:50)
[2020-02-03] MEDS ORDERED: NALOXONE 0.4 MG/ML 1 ML VIAL IV PRN (09:52)
[2020-02-03] MEDS ORDERED: ONDANSETRON 4 MG/2 ML VIAL IVP PRN (09:52)
[2020-02-03] MEDS ORDERED: ACETAMINOPHEN TAB 325 MG TAB PO PRN (09:52)
[2020-02-03] MEDS ORDERED: MAGNESIUM HYDROXIDE 2,400 MG/10 ML CUP PO PRN (09:52)
[2020-02-03] MEDS ORDERED: HYDROcodone/APAP 5-325MG 1 EACH TAB PO PRN (09:52)
--- NOTE | 2020-02-03 10:24 | P.OP ---
Date of Procedure: 02/03/20 Preoperative Diagnosis: Left knee severe tricompartmental osteoarthrosis Postoperative Diagnosis: Same Procedure(s) Performed: Left total knee arthroplastycementedposterior stabilized Implants: Depuy Attune size 5 cemented femoral component, size 5 cemented tibial component, 9 mm articular surface, 32 mm cemented patellar component. This is a posterior stabilized implant. Anesthesia: regional, local, spinal Surgeon: Pietro Norris Research Program Internship #1: [employer] Estimated Blood Loss (ml): 50 Pathology: other (Bone fragments) Condition: stable Disposition: PACU Indications for Procedure: The patient's Carmina 1-year-old female presents with progressive left knee pain secondary osteoarthrosis despite conservative measures. A discussion of the risks and benefits of operative intervention versus continued conservative marlee sures was made with patient. She opted to proceed with surgery. Operative risks to include infection, fracture, development of blood clots, possible neurovascular injury, possible need for subsequent procedures was discussed. Informed consent was obtained. Operative Findings: As below Description of Procedure: The patient was brought to the operating room, and after induction of spinal anesthesia the left lower extremity was prepped and draped in a normal fashion. The tourniquet was inflated to 270 mm marker. A longitudinal incision extending 3 finger breaths above the superior pole of patella extending to the medial aspect the tibial tubercle was then made. The skin and subcutaneous tissues were divided sharply. Electrocautery was used for hemostasis. A medial parapatellar arthrotomy was performed. The medial soft tissues to include the superficial and deep portions of the medial collateral ligament were elevated subperiosteally. The patella was everted. A portion of the retropatellar fat pad was excised sharply. The anterior cruciate ligament was sacrificed. Blunt retractors were placed. A starting hole was made in the distal femur 1 cm anterior to the posterior cruciate ligament origin. An intramedullary femoral guide was then inserted planning on 5 valgus distal cut with 9 mm distal resection. The cutting block was pinned in place. The distal cut was then made. The posterior referencing sizing guide was utilized. I felt size 5 was most appropriate. 3 of external rotation was built into the system and verified off the trans-epicondylar axis and the posterior condyles. The cutting block was pinned in place. The anterior, posterior, and chamfer cuts then made. Bone fragments were removed. The intercondylar guide was placed and the notch cut was made with a sagittal saw. The bone block was removed in one fragment. The trial component was then placed. There is good anterior to posterior and medial to lateral fit. The distal peg holes were drilled. The trial component was removed. Attention was then paid towards preparing the proximal femur. An extra medullary guide was utilized in line with the tibial shaft and second metatarsal distally. I planned on 3 mm resection from the lateral compartment. The cutting block was pinned in place. The proximal tibial cut was then made. The bone was removed in one fragment. The remnants of the medial and lateral menisci were excised at the capsular junction with electrocautery. The tibia sized most appropriately at size 5. The trial femoral and tibial components were placed along with a 9 mm articular surface. I was able to obtain full flexion and extension with internal and external rotation. After several flexion and extension cycles, the tibial rotation was marked with electrocautery line with the medial one third of the tibial tubercle. Attention was then paid towards preparing the patella. A patella reamer was utilized taking stem to 14 mm of bone stock. A good flush cut was made. The patella sized most appropriately 32 mm. The peg holes were drilled. The trial components placed. I had good patellofemoral tracking with no hands technique. The trial components were then removed. The tibia was prepared in the appropriate rotation with appropriate drill and keel punch. The posterior osteophytes were removed with a curved osteotome. The flexion and extension gaps were checked and felt to be symmetric at 9 mm. A trial components were then removed. The posterior soft tissues were injected with ropivacaine. The bony surfaces were prepared with pulsatile lavage and dried. The tibial component was then cemented place was fully seated. Excess cement was removed. The femoral component cemented place and was fully seated. Excess cement was removed. The trial 9 mm articular surface was placed and the knee was put in full extension. The patella component was cemented place. After the cement had sufficiently hardened, the knee was again taken through a range of motion. Again I was able to obtain full flexion and extension with varus and valgus stress. The trial 9 mm articular surface was removed and the final one inserted. This was fully seated. Care was taken to avoid any soft tissue interposition. Pulsatile lavage was again utilized. The medial parapatellar arthrotomy was closed with #2 Ethibond suture. The tourniquet was deflated with approximately 60 minutes total tourniquet time. Final hemostasis was obtained with the cautery. There was minimal bleeding therefore a deep drain was not placed. The subcutaneous tissues were reapproximated with interrupted 2-0 Vicryl sutures. The skin was reapproximated with 3-0 subcuticular strata fix suture. Skin tape and adhesive was applied. A sterile dressing was applied. The patient was awoken from sedation and transferred to recovery room in good condition. Blood loss was estimated at 50 mL. No complications were incurred. Sponge and needle counts were correct at the end of the case. Manas YOUNG assisted during the major components of this case to include exposure, bone resection, implantation, and closure.
[2020-02-03] MEDS ORDERED: HYDROmorphone 1 MG/ML 1 ML SYRINGE IVP ONE (10:25)
[2020-02-03] MEDS: HYDROmorphone 0.5 MG/0.5 ML SYRINGE IVP PRN ×2 (10:35→10:40)
[2020-02-03] MEDS: HYDROcodone/APAP 5-325MG 1 EACH TAB PO PRN (11:57)
[2020-02-03] MEDS ORDERED: ACETAMINOPHEN TAB 500 MG TAB PO PRN (12:53)
[2020-02-03] MEDS ORDERED: MICONAZOLE NITRATE 4%/2% VAG CREAM KIT VAGINAL PRN (12:53)
--- NOTE | 2020-02-03 13:47 | XR ---
EXAMINATION TYPE: XR knee limited LT DATE OF EXAM: 02/03/2020 CLINICAL HISTORY: Left knee pain and arthritis status post total knee replacement. TECHNIQUE: Portable AP and crosstable lateral views of the left knee are obtained immediately postop eratively. COMPARISON: Outside left knee x-ray January 01, 2020 FINDINGS: Metallic hardware from total left knee arthroplasty is seen and appears satisfactory in al ignment and position. There is evidence of recent surgery with diffuse subcutaneous gas and soft tis keila swelling noted. IMPRESSION: METALLIC HARDWARE FROM TOTAL LEFT KNEE ARTHROPLASTY IS SATISFACTORY IN ALIGNMENT.
--- NOTE | 2020-02-03 14:23 | P.CONS ---
History of Present Illness - Reason for Consult Essential hypertension - History of Present Illness Patient is a pleasant 79-year-old the female was admitted for elective left knee arthroplasty patient underwent surgery is having some pain patient has a catheter for pain into the thigh. Patient doesn't have any Christie catheter at this time did not move her bowel or pass gas yet. Patient denied any fever chills. Review of Systems REVIEW OF SYSTEMS: CONSTITUTIONAL: No fever, no malaise, no fatigue. HEENT: No recent visual problems or hearing problems. Denied any sore throat. CARDIOVASCULAR: No chest pain, orthopnea, PND, no palpitations, no syncope. PULMONARY: No shortness of breath, no cough, no hemoptysis. GASTROINTESTINAL: No diarrhea, no nausea, no vomiting, no abdominal pain. NEUROLOGICAL: No headaches, no weakness, no numbness. HEMATOLOGICAL: Denies any bleeding or petechiae. GENITOURINARY: Denies any burning micturition, frequency, or urgency. MUSCULOSKELETAL/RHEUMATOLOGICAL: Denies any joint pain, swelling, or any muscle pain. ENDOCRINE: Denies any polyuria or polydipsia. The rest of the 14-point review of systems is negative. Past Medical History Past Medical History: Cancer, COPD, GERD/Reflux, Hyperlipidemia, Hypertension, Musculoskeletal Disorder, Osteoarthritis (OA), Pneumonia, Renal Disease, Skin Disorder Additional Past Medical History / Comment(s): pneumonia 06/2017, hx skin cancer, cervical cancer 1987-W/ radiation-left kidney atrophy, CKD - 3, hx heart murmur, chronic constipation, urinary incontinence. Areas on vaginal skin that liu. On O2 @2L NC at HS. Sl edema ankles, varicose veins. Mild hyperkalemia, took Rx for this thru 01/29/20. History of Any Multi-Drug Resistant Organisms: None Reported Past Surgical History: Adenoidectomy, Appendectomy, Hysterectomy, Joint Replacement, Orthopedic Surgery, Tonsillectomy Additional Past Surgical History / Comment(s): RT TOTAL KNEE IN 2012, ORIF Left wrist fx. Total Rt shoulder Past Anesthesia/Blood Transfusion Reactions: Previous Problems w/ Anesthesia, Motion Sickness, Postoperative Nausea & Vomiting (PONV) Additional Past Anesthesia/Blood Transfusion Reaction / Comm: daughter very slow to wake from anesthesia Past Psychological History: No Psychological Hx Reported Smoking Status: Former smoker Past Alcohol Use History: Rare Additional Past Alcohol Use History / Comment(s): quit smoking 1974, smoked 1 1/2ppd for 18 yrs. Past Drug Use History: None Reported Additional Drug Use History / Comment(s): CBD salve topical pain relief - Past Family History Brother(s) Family Medical History: Cancer Additional Family Medical History / Comment(s): skin, multiple myeloma Sister(s) Family Medical History: Cancer Additional Family Medical History / Comment(s): colon cancer Medications and Allergies Home Medications Medication Instructions Recorded Confirmed Type Acetaminophen Tab [Tylenol] 1,000 mg PO Q6H PRN 12/18/13 02/03/20 History Losartan [Cozaar] 50 mg PO HS 12/18/13 02/03/20 History NIFEdipine [NIFEdipine ER] 60 mg PO QAM 12/18/13 02/03/20 History Simvastatin 20 mg PO HS 12/18/13 02/03/20 History Aspirin [Adult Low Dose Aspirin EC] 81 mg PO BID 01/30/20 02/03/20 History Cbd Salve 1 applic TOPICAL BID PRN 01/30/20 02/03/20 History Cholecalciferol [Vitamin D3] 400 unit PO DAILY@1200 01/30/20 02/03/20 History Clotrimazole [Gyne-Lotrimin 2% (3 1 applicator VAGINAL DAILY PRN 01/30/20 02/03/20 History day)] Omeprazole [PriLOSEC] 20 mg PO DAILY 01/30/20 02/03/20 History Psyllium Husk (with Sugar) 2 tbsp PO DAILY 01/30/20 02/03/20 History [Metamucil Powder] guaiFENesin [Mucinex] 600 mg PO BID PRN 01/30/20 02/03/20 History Allergies Allergy/AdvReac Type Severity Reaction Status Date / Time nitroglycerin Allergy low blood Verified 02/03/20 07:08 pressure Sulfa (Sulfonamide Allergy headache Verified 02/03/20 07:08 Antibiotics) erythromycin base AdvReac mouth sores Verified 02/03/20 07:08 edrisal AdvReac crying Uncoded 02/03/20 07:08 without reason Physical Exam Vitals: Vital Signs Temp Pulse Pulse Resp BP Pulse Ox 02/03/20 11:15 69 16 159/67 93 L 02/03/20 11:01 66 16 158/56 96 02/03/20 10:45 67 16 158/70 93 L 02/03/20 10:30 62 16 168/69 98 02/03/20 10:15 66 16 168/69 96 02/03/20 10:10 97.0 F L 83 18 165/72 95 02/03/20 08:09 63 16 176/77 99 02/03/20 06:50 97.7 F 75 16 167/72 97 Intake and Output 02/02/20 02/03/20 02/03/20 22:59 06:59 14:59 Intake Total 1301 Output Total 50 Balance 1251 Intake: IV 1301 Output: Estimated Blood Loss 50 Other: Weight 118 kg 118 kg PHYSICAL EXAMINATION: GENERAL: The patient is alert and oriented x3, not in any acute distress. Well developed, well nourished. HEENT: Pupils are round and equally reacting to light. EOMI. No scleral icterus. No conjunctival pallor. Normocephalic, atraumatic. No pharyngeal erythema. No thyromegaly. CARDIOVASCULAR: S1 and S2 present. No murmurs, rubs, or gallops. PULMONARY: Chest is clear to auscultation, no wheezing or crackles. ABDOMEN: Soft, nontender, nondistended, normoactive bowel sounds. No palpable organomegaly. MUSCULOSKELETAL: No joint swelling or deformity. Left knee was covered with Hayden bandage EXTREMITIES: No cyanosis, clubbing, or pedal edema. NEUROLOGICAL: Gross neurological examination did not reveal any focal deficits. SKIN: No rashes. Results CBC & Chem 7: 02/03/20 07:40 Labs: Abnormal Lab Results - Last 24 Hours (Table) 02/03/20 Range/Units 07:30 Potassium 6.0 H (3.5-5.1) mmol/L Assessment and Plan Plan: -Hypertension: Patient blood pressure is high patient did take her and calcium channel albertina today this will be resumed and continued starting tomorrow patient is also on HAYDEN inhibitor which will be resumed as well. We will obtain a basic metabolic profile -COPD without any acute exacerbation patient quit smoking many years ago more than 50 years ago -Gastroesophageal reflux disease -hyperlipidemia -Hypertension -Knee arthroplasty: Patient is on anticoagulation with Xarelto . Patient will be started on appropriate home medications for above mentioned medical problems, medication reconciliation was done.
[2020-02-03] MEDS: ATORVASTATIN 10 MG TAB PO SCH (21:09)
[2020-02-03] MEDS: SENNOSIDES-DOCUSATE SODIUM 1 EACH TAB PO SCH (21:09)
[2020-02-03] MEDS: LOSARTAN 50 MG TAB PO SCH (21:09)
[2020-02-04] MEDS: HYDROcodone/APAP 5-325MG 1 EACH TAB PO PRN ×3 (05:00→20:16)
[2020-02-04 06:18] LABS: Basophils % (A) 0 %; Eosinophils # (A) 0.1 k/uL (0-0.7); Eosinophils % (A) 1 %; HCT 36.8 % (34.0-46.0); HGB 11.5 gm/dL (11.4-16.0); Hypochromasia Slight; Lymphocytes # (A) 0.8 k/uL (1.0-4.8); Lymphocytes % (A) 12 %; MCH 32.4 pg (25.0-35.0); MCHC 31.3 g/dL (31.0-37.0); MCV 103.2 fL (80.0-100.0); Macrocytosis Slight; Monocytes # (A) 0.5 k/uL (0-1.0); Monocytes % (A) 7 %; Neutrophils # (A) 5.7 k/uL (1.3-7.7); Neutrophils % (A) 79 %; Platelet Count 140 k/uL (150-450); RBC 3.57 m/uL (3.80-5.40); RDW 12.6 % (11.5-15.5); WBC 7.2 k/uL (3.8-10.6)
--- NOTE | 2020-02-04 06:23 | P.PN ---
Progress Note - Text Progress Note Date: 02/04/20 POD # 1 s/p left total knee arthroplasty. patient reports pain at 6-, she denies any excessive numbness or weakness. she denies any signs of local anesthetic toxicity. the catheter insertion site is clean, no redness, swelling or discharge. will keep the catheter in place and the patient will remove it once the on-q pump is empty
[2020-02-04] MEDS: PANTOPRAZOLE 40 MG TABLET PO SCH (07:13)
[2020-02-04] MEDS: RIVAROXABAN 10 MG TAB PO SCH (08:43)
[2020-02-04 09:49] LABS: African American GFR (CKD) 37.5 (60.0-200.0); Anion Gap 2.9 mmol/L (4.00-12.00); BUN/Creat Ratio 23.33 Ratio (12.00-20.00); Calcium 8.8 mg/dL (8.7-10.3); Carbon Dioxide 28.1 mmol/L (21.6-31.8); Non-African American GFR(CKD) 32.3 (60.0-200.0); Potassium 5.2 mmol/L (3.5-5.5)
--- NOTE | 2020-02-04 11:11 | P.PN ---
Subjective Progress Note Date: 02/04/20 Principal diagnosis: Status post left total knee arthroplasty Patient evaluated at bedside today, she is resting comfortably. She has ambulated with therapy today. She notes discomfort surrounding the left knee. She denies any headaches, chest pain, fever or chills, nausea or vomiting. Objective - Vital Signs Vital signs: Vital Signs Temp 98.2 F 02/04/20 07:36 Pulse 94 02/04/20 07:36 Resp 16 02/04/20 07:36 BP 165/78 02/04/20 07:36 Pulse Ox 94 L 02/04/20 07:36 Intake & Output 02/03/20 02/04/20 02/04/20 18:59 06:59 18:59 Intake Total 1301 Output Total 50 Balance 1251 Weight 118 kg Intake: IV 1301 Output: Estimated Blood Loss 50 Other: Voiding Method Toilet Toilet Diaper Diaper # Voids 3 3 - Exam Left lower extremity: Incision is clean, dry, and intact. The exofin fusion tape is in good condition. There is minimal soft tissue swelling and ecchymosis surrounding the medial and lateral aspects of the incision. Calf is soft, no tenderness with palpation. Plantar flexion, dorsiflexion, EHL, FHL are intact. Sensory exam to light touch throughout the extremity is intact, dorsal pedis pulses 2+. - Labs CBC & Chem 7: 02/04/20 06:06 02/04/20 06:06 Labs: Abnormal Lab Results - Last 24 Hours (Table) 02/04/20 02/04/20 Range/Units 06:06 06:06 RBC 3.57 L (3.80-5.40) m/uL MCV 103.2 H (80.0-100.0) fL Plt Count 140 L (150-450) k/uL Lymphocytes # 0.8 L (1.0-4.8) k/uL Anion Gap 2.90 L (4.00-12.00) mmol/L BUN 35.0 H (9.0-27.0) mg/dL Est GFR (CKD-EPI)AfAm 37.5 L (60.0-200.0) Est GFR (CKD-EPI)NonAf 32.3 L (60.0-200.0) BUN/Creatinine Ratio 23.33 H (12.00-20.00) Ratio Glucose 122 H (70-110) mg/dL Assessment and Plan Assessment: Status post left total knee arthroplasty Plan: Pain control, continue use of [place] 5 mg/325 mg DVT prophylaxis, continue use of Xarelto at this time Wound care instructions were discussed Icing and elevating techniques discussed Medical recommendations Patient will be discharged to rehab in the next day or 2 Time with Patient: Less than 30
[2020-02-04] MEDS: SENNOSIDES-DOCUSATE SODIUM 1 EACH TAB PO SCH (20:17)
[2020-02-04] MEDS: LOSARTAN 50 MG TAB PO SCH (20:17)
[2020-02-04] MEDS: ATORVASTATIN 10 MG TAB PO SCH (20:17)
--- NOTE | 2020-02-05 01:34 | P.PN ---
Subjective Progress Note Date: 02/04/20 Principal diagnosis: Uncontrolled hTN Patient is a pleasant 79-year-old the female was admitted for elective left knee arthroplasty patient underwent surgery is having some pain patient has a catheter for pain into the thigh. Patient doesn't have any Christie catheter at this time did not move her bowel or pass gas yet. Patient denied any fever chills. 02/04/2020 Patient is currently lying in the bed. Knee pain is better. Was able to stand with physical therapy but could not ambulate. No complaints of chest pain or shortness of breath. No fever no chills. Blood pressure is elevated and monitor closely on current regimen, Review of Systems REVIEW OF SYSTEMS: CONSTITUTIONAL: No fever, no malaise, no fatigue. HEENT: No recent visual problems or hearing problems. Denied any sore throat. CARDIOVASCULAR: No chest pain, orthopnea, PND, no palpitations, no syncope. PULMONARY: No shortness of breath, no cough, no hemoptysis. GASTROINTESTINAL: No diarrhea, no nausea, no vomiting, no abdominal pain. NEUROLOGICAL: No headaches, no weakness, no numbness. HEMATOLOGICAL: Denies any bleeding or petechiae. GENITOURINARY: Denies any burning micturition, frequency, or urgency. MUSCULOSKELETAL/RHEUMATOLOGICAL: Denies any joint pain, swelling, or any muscle pain. ENDOCRINE: Denies any polyuria or polydipsia. The rest of the 14-point review of systems is negative. Objective - Vital Signs Vital signs: Vital Signs Temp 98.2 F 02/04/20 07:36 Pulse 94 02/04/20 07:36 Resp 16 02/04/20 07:36 BP 165/78 02/04/20 07:36 Pulse Ox 94 L 02/04/20 07:36 Intake & Output 02/03/20 02/04/20 02/04/20 18:59 06:59 18:59 Intake Total 1301 Output Total 50 Balance 1251 Weight 118 kg Intake: IV 1301 Output: Estimated Blood Loss 50 Other: Voiding Method Toilet Toilet Diaper Diaper # Voids 3 3 - Exam PHYSICAL EXAMINATION: GENERAL: The patient is alert and oriented x3, not in any acute distress. Well developed, well nourished. HEENT: Pupils are round and equally reacting to light. EOMI. No scleral icterus. No conjunctival pallor. Normocephalic, atraumatic. No pharyngeal erythema. No thyromegaly. CARDIOVASCULAR: S1 and S2 present. No murmurs, rubs, or gallops. PULMONARY: Chest is clear to auscultation, no wheezing or crackles. ABDOMEN: Soft, nontender, nondistended, normoactive bowel sounds. No palpable organomegaly. MUSCULOSKELETAL: No joint swelling or deformity. Left knee was covered with Hayden bandage EXTREMITIES: No cyanosis, clubbing, or pedal edema. NEUROLOGICAL: Gross neurological examination did not reveal any focal deficits. SKIN: No rashes. - Labs CBC & Chem 7: 02/04/20 06:06 02/04/20 06:06 Labs: Abnormal Lab Results - Last 24 Hours (Table) 02/04/20 02/04/20 Range/Units 06:06 06:06 RBC 3.57 L (3.80-5.40) m/uL MCV 103.2 H (80.0-100.0) fL Plt Count 140 L (150-450) k/uL Lymphocytes # 0.8 L (1.0-4.8) k/uL Anion Gap 2.90 L (4.00-12.00) mmol/L BUN 35.0 H (9.0-27.0) mg/dL Est GFR (CKD-EPI)AfAm 37.5 L (60.0-200.0) Est GFR (CKD-EPI)NonAf 32.3 L (60.0-200.0) BUN/Creatinine Ratio 23.33 H (12.00-20.00) Ratio Glucose 122 H (70-110) mg/dL Assessment and Plan Assessment: -Hypertension: uncontrolled likely due to pain. will monitor and c/w nifedipine and Losartan for now. dose can be increased. will obtain a basic metabolic profile -COPD without any acute exacerbation patient quit smoking many years ago more than 50 years ago -Gastroesophageal reflux disease -hyperlipidemia -Hypertension -Knee arthroplasty: Patient is on anticoagulation with Xarelto . Patient was started on appropriate home medications for above mentioned medical problems, medication reconciliation was done. will b Time with Patient: Greater than 30
[2020-02-05] MEDS: HYDROcodone/APAP 5-325MG 1 EACH TAB PO PRN ×2 (02:57→10:45)
[2020-02-05] MEDS: PANTOPRAZOLE 40 MG TABLET PO SCH (07:31)
[2020-02-05] MEDS: RIVAROXABAN 10 MG TAB PO SCH (08:47)
[2020-02-05 09:44] LABS: ALT <8 U/L (8-44); AST 18 U/L (13-35); African American GFR (CKD) 44.6 (60.0-200.0); Albumin/Globulin Ratio 1.94 (1.60-3.17); Alkaline Phosphatase 48 U/L (41-126); Calcium 8.8 mg/dL (8.7-10.3); Carbon Dioxide 24.4 mmol/L (21.6-31.8); Chloride 106 mmol/L (96-109); Globulin 1.7 g/dL (1.6-3.3); Glucose 96 mg/dL (70-110); Non-African American GFR(CKD) 38.4 (60.0-200.0); Potassium 4.6 mmol/L (3.5-5.5); Sodium 138 mmol/L (135-145); Total Bilirubin 0.5 mg/dL (0.3-1.2)
--- NOTE | 2020-02-05 10:48 | P.PN ---
Subjective Progress Note Date: 02/05/20 Principal diagnosis: Status post left total knee arthroplasty Patient evaluated at bedside today, she is resting comfortably. She has ambulated with therapy today. She notes discomfort surrounding the left knee. She denies any headaches, chest pain, fever or chills, nausea or vomiting. Objective - Vital Signs Vital signs: Vital Signs Temp 98.7 F 02/05/20 08:36 Pulse 79 02/05/20 08:36 Resp 18 02/05/20 08:36 BP 143/78 02/05/20 08:36 Pulse Ox 92 L 02/05/20 07:00 Intake & Output 02/04/20 02/05/20 02/05/20 18:59 06:59 18:59 Intake Total 540 Output Total 400 500 Balance 540 -400 -500 Intake: Oral 540 Output: Urine 400 500 Other: Voiding Method Toilet Toilet Diaper Diaper # Voids 3 1 - Exam Left lower extremity: Incision is clean, dry, and intact. The exofin fusion tape is in good condition. There is minimal soft tissue swelling and ecchymosis surrounding the medial and lateral aspects of the incision. Calf is soft, no tenderness with palpation. Plantar flexion, dorsiflexion, EHL, FHL are intact. Sensory exam to light touch throughout the extremity is intact, dorsal pedis pulses 2+. - Labs CBC & Chem 7: 02/04/20 06:06 02/05/20 06:29 Labs: Abnormal Lab Results - Last 24 Hours (Table) 02/05/20 Range/Units 06:29 Est GFR (CKD-EPI)AfAm 44.6 L (60.0-200.0) Est GFR (CKD-EPI)NonAf 38.4 L (60.0-200.0) ALT <8 L (8-44) U/L Total Protein 5.0 L (6.2-8.2) g/dL Albumin 3.30 L (3.80-4.90) g/dL Assessment and Plan Assessment: Status post left total knee arthroplasty Plan: Pain control, [place] 5mg/325mg at discharge DVT prophylaxis, continue use of Xarelto at this time Wound care instructions were discussed Icing and elevating techniques discussed Medical recommendations Patient will be discharged to rehab today Time with Patient: Less than 30
--- NOTE | 2020-02-05 10:51 | P.DS ---
Providers Date of admission: 02/03/2020 Expected date of discharge: 02/05/20 Attending physician: Pietro Norris Consults: 02/03/20 09:52 Consult Physician Routine Consulting Provider: Allan Schmitz Consult Reason/Comments: medical management Do you want consulting provider notified?: Yes Primary care physician: Jovani Duarte MD Hospital Course: Date of admission: 02/03/2020 Date of discharge: 02/05/2020 Admission diagnosis: Status post left total knee arthroplasty Discharge diagnosis: Same Attending physician: Dr. Norris Surgical procedures: Left total knee arthroplasty Brief history: Patient is a 79-year-old female with a history of progressive primary left knee osteoarthritis. At this point patient has failed conservative treatment measures and has opted to proceed with a elective left total knee arthroplasty. Hospital course: Details of patient's surgery can be found in operative report. Patient tolerated the procedure well and was subsequently transported to orthopedic floor. Patient's orthopeidc and medical care was provided daily. Patient had daily laboratory tests performed for evaluation of overall blood counts. Patient had daily physical therapy to include strengthening range of motion as well as education with walker ambulation. Patient was treated with Xarelto for their postoperative DVT prophylaxis during their inpatient stay. Patient was noted to have a relatively uneventful postoperative course. Patient reported satisfactory pain control with oral pain medications by postoperative day 0. Patient showed satisfactory progress with physical therapy. Patient moved steadily through the program and had no difficulty meeting the goals by postoperative day 2. Given patient's otherwise satisfactory course and having met physical therapy goals, plan is to discharge patient rehab on postoperative day 2. Discharge condition/disposition: Patient will be discharged to rehab in stable condition. Discharge medications: Instructions are given on resumption of patient's normal daily medications per primary care recommendation, in addition patient will be prescribed [place] 5 mg/325 mg, Colace 100 mg, Xarelto 10 mg. Discharge instructions: 1. Wound care and infection precautions, keep incision dry and covered while showering, no lotions, creams, moisturizers. No soaking, tubs, pools, hottubs. Do not scrub over the incision. 2. Weight-bear as tolerated with walker / cane until follow-up. 3. Ice and elevate when necessary. Do not exceed 20 minutes per hour with ice pack. 4. Utilize compression sleeve until seen at first follow up appointment. 5. Visiting nursing care. 6. Home physical therapy including home CPM. 7. Pain meds and anticoagulants per prescription. 8. Pain medication has potential to cause constipation. Increase oral fluid and fiber intake. Contact primary care provider if you have not had a bowel movement within 48 hours after discharge 9. No anti-inflammatory medication until discussed at first post operative visit, this including Motrin, Aleve, Mobic, Diclofenac. 10. Follow up in office at 2 weeks postop with Manas Knox PA-C 11. Follow up with your primary care doctor 7-10 days after discharge. 12. Contact [facility] with any questions, . Procedures: left total knee arthroplasty Patient Condition at Discharge: Good Plan - Discharge Summary Discharge Rx Participant: No New Discharge Prescriptions: New Docusate [Colace] 100 mg PO DAILY #30 capsule Hydrocodone/Acetaminophen [[place] 5-325] 1 - 2 each PO Q6HR PRN #56 tab PRN Reason: Pain Rivaroxaban [Xarelto] 10 mg PO DAILY #12 tab No Action Losartan [Cozaar] 50 mg PO HS Acetaminophen Tab [Tylenol] 1,000 mg PO Q6H PRN PRN Reason: Pain Simvastatin 20 mg PO HS NIFEdipine [NIFEdipine ER] 60 mg PO QAM Psyllium Husk (with Sugar) [Metamucil Powder] 2 tbsp PO DAILY Cholecalciferol [Vitamin D3] 400 unit PO DAILY@1200 guaiFENesin [Mucinex] 600 mg PO BID PRN PRN Reason: Congestion Aspirin [Adult Low Dose Aspirin EC] 81 mg PO BID Omeprazole [PriLOSEC] 20 mg PO DAILY Cbd Salve 1 applic TOPICAL BID PRN PRN Reason: Pain Clotrimazole [Gyne-Lotrimin 2% (3 day)] 1 applicator VAGINAL DAILY PRN PRN Reason: vaginal pain/itching Discharge Medication List Acetaminophen Tab [Tylenol] 1,000 mg PO Q6H PRN 12/18/13 [History] Losartan [Cozaar] 50 mg PO HS 12/18/13 [History] NIFEdipine [NIFEdipine ER] 60 mg PO QAM 12/18/13 [History] Simvastatin 20 mg PO HS 12/18/13 [History] Aspirin [Adult Low Dose Aspirin EC] 81 mg PO BID 01/30/20 [History] Cbd Salve 1 applic TOPICAL BID PRN 01/30/20 [History] Cholecalciferol [Vitamin D3] 400 unit PO DAILY@1200 01/30/20 [History] Clotrimazole [Gyne-Lotrimin 2% (3 day)] 1 applicator VAGINAL DAILY PRN 01/30/20 [History] Omeprazole [PriLOSEC] 20 mg PO DAILY 01/30/20 [History] Psyllium Husk (with Sugar) [Metamucil Powder] 2 tbsp PO DAILY 01/30/20 [History] guaiFENesin [Mucinex] 600 mg PO BID PRN 01/30/20 [History] Docusate [Colace] 100 mg PO DAILY #30 capsule 02/05/20 [Rx] Hydrocodone/Acetaminophen [[place] 5-325] 1 - 2 each PO Q6HR PRN #56 tab 02/05/20 [Rx] Rivaroxaban [Xarelto] 10 mg PO DAILY #12 tab 02/05/20 [Rx] Follow up Appointment(s)/Referral(s): Po Knox PAC [PHYSICIAN [employer]ER] - 2 Weeks Patient Instructions/Handouts: *Surgery [facility] - On-Q Pain Pump Discharge Instr uctions Activity/Diet/Wound Care/Special Instructions: Orthopedic Discharge Instructions: 1. Wound care and infection precautions, keep incision dry and covered while showering, no lotions, creams, moisturizers. No soaking, pools, hot tubs. Do not scrub over incision. 2. Weight-bear as tolerated with walker / cane until follow-up. 3. Ice and elevate when necessary. Do not exceed 20 minutes per hour with ice pack. 4. Utilize compression sleeve until seen at first follow up appointment. 5. Pain meds and anticoagulants per prescription. 6. Pain medication has potential to cause constipation. Increase oral fluid and fiber intake. Contact primary care provider if you have not had a bowel movement within 48 hours after discharge. 7. No anti-inflammatory medication until discussed at first post operative visit, this including Motrin, Aleve, Mobic, Diclofenac. 8. Follow up in office at 2 weeks postop with Manas Knox PA-C 9. Follow up with your primary care doctor 7-10 days after discharge. 10. Contact [facility] with any questions, [phone]. 11. *Please call [facility] once home to arrange delivery of Continuous Passive Motion (CPM) machine: [phone]. Discharge Disposition: TRANSFER TO SNF/ECF
[2020-02-05 13:01] VITALS: BP 156/78; PULSE 67; RESP 15; TEMP 98.4
== END 2020-02-05 16:18 ==
LOC: OR 06:14 → 4SSUR 10:01 → OR 02-04 13:50 → 4SSUR 02-04 13:50
PROVIDERS: ADMIT Orthopaedic Surgery; ATTEND Orthopaedic Surgery
DX: M17.12 Unilateral primary osteoarthritis, left knee (principal); E78.00 Pure hypercholesterolemia, unspecified; E78.5 Hyperlipidemia, unspecified; I12.9 Hypertensive chronic kidney disease with stage 1 through stage 4 chronic kidney disease, or unspecified chronic kidney disease; J44.9 Chronic obstructive pulmonary disease, unspecified; K21.9 Gastro-esophageal reflux disease without esophagitis; N18.9 Chronic kidney disease, unspecified; N26.1 Atrophy of kidney (terminal); Z79.01 Long term (current) use of anticoagulants; Z79.82 Long term (current) use of aspirin; Z88.2 Allergy status to sulfonamides; Z87.891 Personal history of nicotine dependence; Z96.611 Presence of right artificial shoulder joint; Z96.651 Presence of right artificial knee joint
CPT/HCPCS: 27447; 97530 ×4; 97162; 97166; 64448; 76942; 80053; 80048; 84132; 85025; 88300; 73560; G0378 ×2; C1713; C1776; J2250; J0171; J0690 ×3; J2405; J3010; J1885; J1170 ×2; J2795 ×2; J2704; J0735

== ENCOUNTER 2020-03-02 18:27 | Inpatient (IN) | payer MEDICARE ==
--- NOTE | 2020-03-02 19:01 | ED ---
General Adult HPI - General Chief complaint: Weakness Stated complaint: weakness Time Seen by Provider: 03/02/20 18:29 Source: patient, RN notes reviewed Mode of arrival: ambulatory Limitations: no limitations - History of Present Illness Initial comments: Patient is a pleasant 79-year-old female presenting to the emergency department with weakness. Patient did have knee surgery done around 3 weeks ago. Patient was at group home. Patient left the group home for family to take care of her. Family did test covid positive and now have left the area. Patient is at home and has nobody to help take care of her. Patient states she is unable to get around the house or take care of herself on her own. Patient is unable to perform activities of daily living. Patient does have some dyspnea or 2 previous COPD with associated cough. - Related Data Home Medications Medication Instructions Recorded Confirmed Acetaminophen Tab [Tylenol] 1,000 mg PO Q6H PRN 12/18/13 02/03/20 Losartan [Cozaar] 50 mg PO HS 12/18/13 02/03/20 NIFEdipine [NIFEdipine ER] 60 mg PO QAM 12/18/13 02/03/20 Simvastatin 20 mg PO HS 12/18/13 02/03/20 Aspirin [Adult Low Dose Aspirin EC] 81 mg PO BID 01/30/20 02/03/20 Cbd Salve 1 applic TOPICAL BID PRN 01/30/20 02/03/20 Cholecalciferol [Vitamin D3] 400 unit PO DAILY@1200 01/30/20 02/03/20 Clotrimazole [Gyne-Lotrimin 2% (3 1 applicator VAGINAL DAILY PRN 01/30/20 02/03/20 day)] Omeprazole [PriLOSEC] 20 mg PO DAILY 01/30/20 02/03/20 Psyllium Husk (with Sugar) 2 tbsp PO DAILY 01/30/20 02/03/20 [Metamucil Powder] guaiFENesin [Mucinex] 600 mg PO BID PRN 01/30/20 02/03/20 Previous Rx's Medication Instructions Recorded Docusate [Colace] 100 mg PO DAILY #30 capsule 02/05/20 Hydrocodone/Acetaminophen [[place] 1 - 2 each PO Q6HR PRN #56 tab 02/05/20 5-325] Rivaroxaban [Xarelto] 10 mg PO DAILY #12 tab 02/05/20 Allergies Allergy/AdvReac Type Severity Reaction Status Date / Time nitroglycerin Allergy low blood Verified 02/03/20 07:08 pressure Sulfa (Sulfonamide Allergy headache Verified 02/03/20 07:08 Antibiotics) erythromycin base AdvReac mouth sores Verified 02/03/20 07:08 edrisal AdvReac crying Uncoded 02/03/20 07:08 without reason Review of Systems ROS Statement: Those systems with pertinent positive or pertinent negative responses have been documented in the HPI. ROS Other: All systems not noted in ROS Statement are negative. Constitutional: Denies: fever Eyes: Denies: eye pain ENT: Denies: ear pain Respiratory: Reports: as per HPI, cough Cardiovascular: Denies: chest pain Endocrine: Denies: fatigue Gastrointestinal: Denies: abdominal pain Genitourinary: Denies: dysuria Skin: Denies: rash Neurological: Reports: as per HPI Past Medical History Past Medical History: Cancer, COPD, GERD/Reflux, Hyperlipidemia, Hypertension, Musculoskeletal Disorder, Osteoarthritis (OA), Pneumonia, Renal Disease, Skin Disorder Additional Past Medical History / Comment(s): pneumonia 06/2017, hx skin cancer, cervical cancer 1987-W/ radiation-left kidney atrophy, CKD - 3, hx heart murmur, chronic constipation, urinary incontinence. Areas on vaginal skin that liu. On O2 @2L NC at HS. Sl edema ankles, varicose veins. Mild hyperkalemia, took Rx for this thru 01/29/20. History of Any Multi-Drug Resistant Organisms: None Reported Past Surgical History: Adenoidectomy, Appendectomy, Hysterectomy, Joint Replac ement, Orthopedic Surgery, Tonsillectomy Additional Past Surgical History / Comment(s): RT TOTAL KNEE IN 2012, ORIF Left wrist fx. Total Rt shoulder Past Anesthesia/Blood Transfusion Reactions: Previous Problems w/ Anesthesia, Motion Sickness, Postoperative Nausea & Vomiting (PONV) Additional Past Anesthesia/Blood Transfusion Reaction / Comment(s): daughter very slow to wake from anesthesia Past Psychological History: No Psychological Hx Reported Smoking Status: Former smoker Past Alcohol Use History: Rare Past Drug Use History: None Reported - Past Family History Brother(s) Family Medical History: Cancer Additional Family Medical History / Comment(s): skin, multiple myeloma Sister(s) Family Medical History: Cancer Additional Family Medical History / Comment(s): colon cancer General Exam Limitations: no limitations General appearance: alert, in no apparent distress Head exam: Present: normocephalic Eye exam: Present: normal appearance Neck exam: Present: normal inspection Respiratory exam: Present: normal lung sounds bilaterally Cardiovascular Exam: Present: regular rate, normal rhythm GI/Abdominal exam: Present: soft. Absent: tenderness Extremities exam: Present: normal inspection. Absent: calf tenderness Neurological exam: Present: alert. Absent: motor sensory deficit Psychiatric exam: Present: normal affect, normal mood Skin exam: Present: other (Incision left knee clean and dry and intact) Course Vital Signs 03/02/20 18:29 Temperature 98.6 F Pulse Rate 75 Respiratory 18 Rate Blood Pressure 142/58 O2 Sat by Pulse 96 Oximetry EKG Findings - EKG Comments: EKG Findings:: Sinus rhythm at 82. Premature complexes present. OK 172. QRS 88. QT 320. QTC 373. Normal axis. Normal QRS. Nonspecific ST-T. Medical Decision Making - Medical Decision Making Case was discussed with Dr. leahy, who will admit covered for Dr. Sanchez, who admits for Dr. Nelson Disposition Clinical Impression: COPD (chronic obstructive pulmonary disease) Disposition: ADMITTED IP TO THIS HOSP Is patient prescribed a controlled substance at d/c from ED?: No Referrals: Jovani Duarte MD [Primary Care Provider] - 1-2 days Decision Time: 20:05
[2020-03-02] MEDS ORDERED: IPRATROPIUM-ALBUTEROL 3 ML NEB INHALATION STA (20:01)
[2020-03-02] MEDS ORDERED: methylPREDNISolone SOD SUCCI 125 MG/2 ML VIAL IV STA (20:01)
[2020-03-02 20:19] LABS: Basophils # (A) 0.1 k/uL (0-0.2); Basophils % (A) 1 %; Eosinophils # (A) 0.3 k/uL (0-0.7); Eosinophils % (A) 3 %; HCT 35.9 % (34.0-46.0); HGB 11.7 gm/dL (11.4-16.0); Lymphocytes # (A) 1.2 k/uL (1.0-4.8); Lymphocytes % (A) 12 %; MCH 31.9 pg (25.0-35.0); MCHC 32.7 g/dL (31.0-37.0); Mean Platelet Volume 8.3; Monocytes # (A) 0.9 k/uL (0-1.0); Monocytes % (A) 9 %; Neutrophils # (A) 7.1 k/uL (1.3-7.7); Neutrophils % (A) 72 %; Platelet Count 215 k/uL (150-450); RBC 3.68 m/uL (3.80-5.40); RDW 13.1 % (11.5-15.5); WBC 9.9 k/uL (3.8-10.6)
[2020-03-02 20:26] LABS: MCV 97.5 fL (80.0-100.0)
[2020-03-02 20:28] LABS: Albumin 3.2 g/dL (3.5-5.0); Calcium 10.9 mg/dL (8.4-10.2); Potassium 4.9 mmol/L (3.5-5.1); Total Bilirubin 0.5 mg/dL (0.2-1.3); Total Protein 6.1 g/dL (6.3-8.2)
--- NOTE | 2020-03-02 22:10 | XR ---
EXAMINATION TYPE: XR chest 1V portable DATE OF EXAM: 03/02/2020 COMPARISON: 01/13/2020 HISTORY: Difficulty breathing TECHNIQUE: FINDINGS: There is no heart failure nor confluent pneumonic infiltrate. There is some mild pleural re action lateral left lung base unchanged. There are no hilar masses. There is right shoulder prosthesi s. IMPRESSION: Pleural diaphragmatic reaction left lung base not significantly different than old exam. Normal heart. No heart failure.
--- NOTE | 2020-03-02 23:18 | P.HPIM ---
History of Present Illness H&P Date: 03/02/20 Patient is an 79-year-old female with a PMH of hypertension, chronic kidney disease, hyperlipidemia, and COPD who presented to the emergency room with complaints of weakness and SOB. The patient underwent left knee replacement on 02/02 and was subsequently discharged to a rehab facility. The patient was released from rehab facility earlier today after completing her stay and was supposed to go to her home where her family had come from [place] to stay with her to help her with her ADLs. The patient notes that some of her family members tested positive for coronavirus and they immediately left the [facility] and traveled back to [place]. The patient was thereby all alone in her house with minimal mobility and thereby activated EMS and was brought to the emergency room. At time of the evaluation, she reported shortness of breath, worse from baseline with her COPD for the past 2-3 days along with mild wheezing though denied any additional complaints. She denied chest pain, fever, chills, nausea, vomiting, abdominal pain, or diarrhea. Patient notes that she continues to need plenty of assistance with her ADLs due to her left knee though does not have any active pain in the knee. EKG Emergency room revealed a sinus rhythm with PVCs at 82 bpm with no acute ST/T- wave changes noted as reviewed by me. Chest x-ray was unremarkable. Laboratory evaluation revealed a sodium of 1.9, chloride of 97, BUN 63, creatinine 1.6, glucose 119, calcium 10.9, AST 50, ALT 59. Review of Systems Pertinent positives and negatives as discussed in HPI, a complete review of systems was performed and all other systems are negative. Past Medical History Past Medical History: Cancer, COPD, GERD/Reflux, Hyperlipidemia, Hypertension, Musculoskeletal Disorder, Osteoarthritis (OA), Pneumonia, Renal Disease, Skin Disorder Additional Past Medical History / Comment(s): pneumonia 06/2017, hx skin cancer, cervical cancer 1987-W/ radiation-left kidney atrophy, CKD - 3, hx heart murmur, chronic constipation, urinary incontinence. Areas on vaginal skin that liu. On O2 @2L NC at HS. Sl edema ankles, varicose veins. Mild hyperkalemia, took Rx for this thru 01/29/20. History of Any Multi-Drug Resistant Organisms: None Reported Past Surgical History: Adenoidectomy, Appendectomy, Hysterectomy, Joint Replacement, Orthopedic Surgery, Tonsillectomy Additional Past Surgical History / Comment(s): RT TOTAL KNEE IN 2013, ORIF Left wrist fx. Total Rt shoulder Past Anesthesia/Blood Transfusion Reactions: Previous Problems w/ Anesthesia, Motion Sickness, Postoperative Nausea & Vomiting (PONV) Additional Past Anesthesia/Blood Transfusion Reaction / Comment(s): daughter very slow to wake from anesthesia Past Psychological History: No Psychological Hx Reported Smoking Status: Former smoker Past Alcohol Use History: Rare Past Drug Use History: None Reported - Past Family History Brother(s) Family Medical History: Cancer Additional Family Medical History / Comment(s): skin, multiple myeloma Sister(s) Family Medical History: Cancer Additional Family Medical History / Comment(s): colon cancer Medications and Allergies Home Medications Medication Instructions Recorded Confirmed Type Acetaminophen Tab [Tylenol] 1,000 mg PO Q6H PRN 12/18/13 03/02/20 History Losartan [Cozaar] 50 mg PO HS 12/18/13 03/02/20 History NIFEdipine [NIFEdipine ER] 60 mg PO QAM 12/18/13 03/02/20 History Simvastatin 20 mg PO HS 12/18/13 03/02/20 History Aspirin [Adult Low Dose Aspirin EC] 81 mg PO DAILY 01/30/20 03/02/20 History Cbd Salve 1 applic TOPICAL BID PRN 01/30/20 03/02/20 History Omeprazole [PriLOSEC] 20 mg PO DAILY 01/30/20 03/02/20 History guaiFENesin [Mucinex] 600 mg PO BID PRN 01/30/20 03/02/20 History Cholecalciferol [Vitamin D3 (25 2,000 unit PO DAILY 03/02/20 03/02/20 History Mcg = 1000 Iu)] Fiber-Tab 650mg 1 tab PO DAILY 03/02/20 03/02/20 History Lansoprazole [Prevacid] 15 mg PO DAILY 03/02/20 03/02/20 History Potassium Chloride [K-Tab ER] 8 meq PO DAILY 03/02/20 03/02/20 History hydroCHLOROthiazide 25 mg PO DAILY 03/02/20 03/02/20 History polyethylene glycoL 3350 [Miralax] 17 gm PO DAILY PRN 03/02/20 03/02/20 History Allergies Allergy/AdvReac Type Severity Reaction Status Date / Time nitroglycerin Allergy low blood Verified 03/02/20 21:48 pressure Sulfa (Sulfonamide Allergy headache Verified 03/02/20 21:48 Antibiotics) erythromycin base AdvReac mouth sores Verified 03/02/20 21:48 edrisal AdvReac crying Uncoded 03/02/20 21:48 without reason Physical Exam Vitals: Vital Signs Temp Pulse Resp BP Pulse Ox 03/02/20 21:01 89 16 136/82 98 03/02/20 20:44 82 03/02/20 20:38 80 03/02/20 20:10 98.3 F 80 16 136/61 99 03/02/20 18:29 98.6 F 75 18 142/58 96 Intake and Output 03/02/20 03/02/20 03/02/20 06:59 14:59 22:59 Other: Weight 115.666 kg General: non toxic, no distress, appears at stated age, morbidly obese Derm: no unusual rashes/lesions no unusual ecchymoses, warm, dry Head: atraumatic, normocephalic, symmetric Eyes: EOMI, no lid lag, anicteric sclera, pupils equal round reactive to light ENT: Nose and ears atraumatic, no thrush, no pharyngeal erythema Neck: No thyromegaly, no cervical lymphadenopathy, trachea midline, supple Mouth: no lip lesion, mucus membranes moist Cardiovascular: S1S2 reg, no murmur, positive posterior tibial pulse bilateral, no edema, capillary refill less than 2 seconds Lungs: Mild expiratory wheezing, no rhonchi, no rales , no accessory muscle use Abdominal: soft, nontender to palpation, no guarding, no appreciable organomegaly, normal bowel sounds Ext: no gross muscle atrophy, muscle strength 4 out of 5 in all extremities except left lower extremity with strength 3 out of 5, left knee postsurgical, no contractures Neuro: CN II-XI grossly intact, light touch intact all 4 extremities, finger to nose within normal limits, Psych: Alert, oriented, appropriate affect Results CBC & Chem 7: 03/02/20 20:06 03/02/20 20:06 Labs: Abnormal Lab Results - Last 24 Hours (Table) 03/02/20 03/02/20 Range/Units 20:06 20:06 RBC 3.68 L (3.80-5.40) m/uL Sodium 129 L (137-145) mmol/L Chloride 97 L (98-107) mmol/L BUN 63 H (7-17) mg/dL Creatinine 1.60 H (0.52-1.04) mg/dL Glucose 119 H (74-99) mg/dL Calcium 10.9 H (8.4-10.2) mg/dL AST 50 H (14-36) U/L ALT 59 H (4-34) U/L Total Protein 6.1 L (6.3-8.2) g/dL Albumin 3.2 L (3.5-5.0) g/dL Assessment and Plan Plan: Acute COPD exacerbation -DuoNeb's [id number] and as needed -Continue with Solu-Medrol -Supplemental oxygen -Coronavirus testing Inability to care for self at home -pack worker consult -PT consult Prerenal GEORGES -Continue with IV fluids -Monitor BMP Hyponatremia, likely secondary to poor oral intake -Continue with IV fluids and monitor BMP -Hold HCTZ and Losartan for now Chronic conditions: Hyperlipidemia -C/w home meds DVT prophylaxis -Heparin subq The patient is admitted with an anticipated greater than 2 midnight stay for evaluation of COPD exacerbation CODE STATUS: Full Code Discussed with: Patient, RN Anticipated discharge date: 2-[address]: Home/[facility] A total of 40 minutes was spent on the care of this complex patient more than 50% of the time was spent in counseling and care coordination.
[2020-03-03] MEDS: methylPREDNISolone SOD SUCCI 125 MG/2 ML VIAL IV SCH ×5 (00:45→23:52)
[2020-03-03] MEDS: SODIUM CHLORIDE 0.9% 1,000 ML IV SCH ×3 (00:46→19:51)
[2020-03-03] MEDS ORDERED: ACETAMINOPHEN TAB 325 MG TAB PO PRN (04:59)
[2020-03-03] MEDS: ACETAMINOPHEN TAB 325 MG TAB PO PRN ×2 (05:26→19:56)
[2020-03-03] MEDS: IPRATROPIUM-ALBUTEROL 3 ML NEB INHALATION SCH ×4 (07:37→18:53)
[2020-03-03] MEDS: POTASSIUM CHLORIDE ER 10 MEQ TAB.ER.PRT PO SCH (08:27)
[2020-03-03] MEDS: ASPIRIN 81 MG PO SCH (08:27)
[2020-03-03 09:26] LABS: Basophils % (A) 0 %; Eosinophils % (A) 0 %; HCT 38.1 % (34.0-46.0); HGB 11.6 gm/dL (11.4-16.0); Hypochromasia Slight; Lymphocytes # (A) 0.8 k/uL (1.0-4.8); Lymphocytes % (A) 12 %; MCH 30.4 pg (25.0-35.0); MCHC 30.5 g/dL (31.0-37.0); MCV 99.5 fL (80.0-100.0); Mean Platelet Volume 7.7; Monocytes # (A) 0.1 k/uL (0-1.0); Monocytes % (A) 1 %; Neutrophils # (A) 5.6 k/uL (1.3-7.7); Neutrophils % (A) 86 %; Platelet Count 241 k/uL (150-450); RBC 3.83 m/uL (3.80-5.40); RDW 13.6 % (11.5-15.5); WBC 6.6 k/uL (3.8-10.6)
[2020-03-03 09:41] LABS: Albumin 3.3 g/dL (3.5-5.0); Bilirubin, Delta 0.2 mg/dL (0.0-0.2); Bilirubin,Unconjugated 0.2 mg/dL (0.0-1.1); Potassium 4.7 mmol/L (3.5-5.1); Total Bilirubin 0.4 mg/dL (0.2-1.3); Total Protein 6.3 g/dL (6.3-8.2)
--- NOTE | 2020-03-03 14:07 | P.PN ---
Subjective Progress Note Date: 03/03/20 No new complaints at this time. Patient continues to report dypsnea on exertion, cough, weakness. Objective - Vital Signs Vital signs: Vital Signs Temp 97.8 F 03/03/20 03:50 Pulse 68 03/03/20 11:10 Resp 16 03/02/20 21:01 BP 135/63 03/03/20 03:50 Pulse Ox 96 03/03/20 03:50 Intake & Output 03/02/20 03/03/20 03/03/20 18:59 06:59 18:59 Intake Total 450 Output Total 550 Balance -100 Weight 115.666 kg 115.666 kg Intake: Oral 450 Output: Urine 250 Stool 300 Other: Voiding Method Diaper Diaper Incontinent Incontinent # Bowel Movements 4 - Exam Gen: awake, alert HEENT: normocephalic, atraumatic, good hearing acuity, moist mucous membranes, positive JVD Resp: Moderate to diminished air exchange, no accessory muscle use, no wheezes, posterior crackles right greater than left CVS: good distal perfusion x 4, RRR, no murmurs, clicks, gallops GI: soft, NTTP, ND : no SPT, no CVAT, larson catheter not present MSK: no pitting edema, no clubbing Neuro: non-focal, no sensory deficits, appropriate tone Psych: cooperative, euthymic mood - Labs CBC & Chem 7: 03/03/20 08:45 03/03/20 08:45 Labs: Abnormal Lab Results - Last 24 Hours (Table) 03/02/20 03/02/20 03/03/20 Range/Units 20:06 20:06 08:45 RBC 3.68 L (3.80-5.40) m/uL MCHC 30.5 L (31.0-37.0) g/dL Lymphocytes # 0.8 L (1.0-4.8) k/uL Sodium 129 L (137-145) mmol/L Chloride 97 L (98-107) mmol/L BUN 63 H (7-17) mg/dL Creatinine 1.60 H (0.52-1.04) mg/dL Glucose 119 H (74-99) mg/dL Calcium 10.9 H (8.4-10.2) mg/dL AST 50 H (14-36) U/L ALT 59 H (4-34) U/L Alkaline Phosphatase (38-126) U/L Total Protein 6.1 L (6.3-8.2) g/dL Albumin 3.2 L (3.5-5.0) g/dL 03/03/20 Range/Units 08:45 RBC (3.80-5.40) m/uL MCHC (31.0-37.0) g/dL Lymphocytes # (1.0-4.8) k/uL Sodium 133 L (137-145) mmol/L Chloride (98-107) mmol/L BUN 55 H (7-17) mg/dL Creatinine 1.45 H (0.52-1.04) mg/dL Glucose 218 H (74-99) mg/dL Calcium 11.0 H (8.4-10.2) mg/dL AST 38 H (14-36) U/L ALT 52 H (4-34) U/L Alkaline Phosphatase 134 H (38-126) U/L Total Protein (6.3-8.2) g/dL Albumin 3.3 L (3.5-5.0) g/dL Assessment and Plan Assessment: Acute COPD exacerbation -DuoNeb's [id number]-[id number] and as needed -Continue with Solu-Medrol -Supplemental oxygen -Coronavirus testing - will order levofloxacin for pneumonia - echocardiogram for JVD Inability to care for self at home -automotive tire worker consult -PT consult Prerenal GEORGES -Continue with IV fluids -Monitor BMP Hyponatremia, likely secondary to poor oral intake -Continue with IV fluids and monitor BMP -Hold HCTZ and Losartan for now Chronic conditions: Hyperlipidemia -C/w home meds DVT prophylaxis -Heparin subq The patient is admitted with an anticipated greater than 2 midnight stay for evaluation of COPD exacerbation CODE STATUS: Full Code Discussed with: Patient, RN Anticipated discharge date: 2-[address]: Home/[facility]
[2020-03-03] MEDS: LEVOFLOXACIN 750 MG TAB PO SCH (15:56)
[2020-03-03] MEDS: ATORVASTATIN 10 MG TAB PO SCH (19:51)
[2020-03-04] MEDS: methylPREDNISolone SOD SUCCI 125 MG/2 ML VIAL IV SCH ×3 (05:48→17:29)
[2020-03-04] MEDS: ACETAMINOPHEN TAB 325 MG TAB PO PRN ×2 (06:46→20:00)
[2020-03-04] MEDS: IPRATROPIUM-ALBUTEROL 3 ML NEB INHALATION SCH ×4 (07:48→19:38)
[2020-03-04] MEDS: POTASSIUM CHLORIDE ER 10 MEQ TAB.ER.PRT PO SCH (09:08)
[2020-03-04] MEDS: ASPIRIN 81 MG PO SCH (09:08)
--- NOTE | 2020-03-04 11:58 | P.PN ---
Subjective Progress Note Date: 03/04/20 No new complaints today. Ongoing cough, dyspnea, weakness. Objective - Vital Signs Vital signs: Vital Signs Temp 97.9 F 03/04/20 07:00 Pulse 77 03/04/20 11:42 Resp 15 03/04/20 05:30 BP 157/68 03/04/20 07:00 Pulse Ox 97 03/04/20 11:15 Intake & Output 03/03/20 03/04/20 03/04/20 18:59 06:59 18:59 Intake Total 1250 Output Total 1550 500 Balance -300 -500 Intake: Intake, IV Titration 900 Amount Sodium Chloride 0.9% 1, 900 000 ml @ 75 mls/hr IV . [id number] [facility] Rx#:[id number] Oral 350 Output: Urine 1550 500 Other: Voiding Method Diaper Diaper Incontinent Incontinent # Bowel Movements 4 1 - Exam Gen: awake, alert HEENT: normocephalic, atraumatic, good hearing acuity, moist mucous membranes, positive JVD Resp: Moderate to diminished air exchange, no accessory muscle use, no wheezes, posterior crackles right greater than left CVS: good distal perfusion x 4, RRR, no murmurs, clicks, gallops GI: soft, NTTP, ND : no SPT, no CVAT, larson catheter not present MSK: no pitting edema, no clubbing Neuro: non-focal, no sensory deficits, appropriate tone Psych: cooperative, euthymic mood - Labs CBC & Chem 7: 03/03/20 08:45 03/03/20 08:45 Assessment and Plan Assessment: Acute COPD exacerbation -DuoNeb's [id number]-xdrum and as needed -Continue with Solu-Medrol -Supplemental oxygen -Coronavirus testing - will order levofloxacin for pneumonia - echocardiogram for JVD, will be done tomorrow - PT/OT Inability to care for self at home -hollow handle bench worker consult -PT consult Prerenal GEORGES -Continue with IV fluids -Monitor BMP Hyponatremia, likely secondary to poor oral intake -Continue with IV fluids and monitor BMP -Hold HCTZ and Losartan for now Chronic conditions: Hyperlipidemia -C/w home meds DVT prophylaxis -Heparin subq The patient is admitted with an anticipated greater than 2 midnight stay for evaluation of COPD exacerbation CODE STATUS: Full Code Discussed with: Patient, RN Anticipated discharge date: 2-[address]: Home/[facility]
[2020-03-04] MEDS: SODIUM CHLORIDE 0.9% 1,000 ML IV SCH ×2 (14:44→20:03)
[2020-03-04] MEDS: ATORVASTATIN 10 MG TAB PO SCH (20:00)
[2020-03-05] MEDS: methylPREDNISolone SOD SUCCI 125 MG/2 ML VIAL IV SCH ×3 (00:30→12:34)
[2020-03-05] MEDS: SODIUM CHLORIDE 0.9% 1,000 ML IV SCH (00:30)
[2020-03-05] MEDS: ACETAMINOPHEN TAB 325 MG TAB PO PRN ×2 (06:20→20:29)
[2020-03-05] MEDS: IPRATROPIUM-ALBUTEROL 3 ML NEB INHALATION SCH ×4 (10:03→19:55)
[2020-03-05] MEDS: ASPIRIN 81 MG PO SCH (10:13)
[2020-03-05] MEDS: POTASSIUM CHLORIDE ER 10 MEQ TAB.ER.PRT PO SCH (10:13)
[2020-03-05] MEDS: guaiFENesin 600 MG TABLET.ER PO PRN (10:16)
[2020-03-05] MEDS: guaiFENesin-Coden 100-10MG/5ML 10 ML CUP PO PRN ×2 (12:34→17:27)
[2020-03-05] MEDS ORDERED: ARTIFICIAL TEARS-HYPROMELLOSE DROPS 15 ML BTL BOTH EYES PRN (12:49)
--- NOTE | 2020-03-05 13:36 | ECHOF ---
Referral Reason:Rule out heart failure causing hypoxemia MEASUREMENTS -------- HEIGHT: 165.1 cm WEIGHT: 115.7 kg BP: 160/80 IVSd: 1.4 cm (0.6 - 1.1) LVIDd: 4.9 cm (3.9 - 5.3) LVPWd: 1.4 cm (0.6 - 1.1) EDV(Teich): 112 ml IVSs: 1.9 cm LVIDs: 3.0 cm LVPWs: 2.0 cm %IVS Thck: 32 % ESV(Teich): 36 ml EF(Teich): 68 % %FS: 38 % SV(Teich): 76 ml LA Diam: 3.9 cm (2.7 - 3.8) RVIDd: 3.5 cm (< 3.3) LALs A4C: 5.4 cm LAAs A4C: 18.6 cm LAESV A-L A4C: 55 ml LAESV MOD A4C: 53 ml LALs A2C: 5.8 cm LAAs A2C: 18.4 cm LAESV A-L A2C: 49 ml LAESV MOD A2C: 47 ml LAESV(A-L): 54 ml LAESV Index (A-L): 24.59 ml/m Ao Diam: 2.8 cm (2.0 - 3.7) AV Cusp: 1.8 cm (1.5 - 2.6) EPSS: 0.4 cm MV E Meliton: 1.07 m/s MV DecT: 263 ms MV Dec Clay: 4.1 m/s MV A Meliton: 1.27 m/s MV E/A Ratio: 0.84 MV PHT: 76 ms AV Vmax: 1.98 m/s AV maxP.64 mmHg AV Vmax: 2.07 m/s AV Vmean: 1.35 m/s AV maxP.11 mmHg AV meanP.33 mmHg AV Env.Ti: 318 ms AV VTI: 43.1 cm TR Vmax: 3.49 m/s TR maxP.73 mmHg RAP: 5.00 mmHg RVSP: 53.73 mmHg MV EF SLOPE: 79.93 mm/s (70 - 150) MV EXCURSION: 14.75 mm (> 18.000) FINDINGS -------- Sinus rhythm. This was a technically adequate study. The left ventricular size is normal. There is moderate concentric left ventricular hypertrophy. O verall left ventricular systolic function is normal with, an EF between 60 - 65 %. The right ventricle is mildly enlarged. Normal LA size by volume 22+/-6 ml/m2. The right atrial size is normal. Interatrial and interventricular septum intact. Aortic valve is trileaflet and is mildly thickened. Trace amount of aortic regurgitation. Peak/m ayush gradient across the Aortic Valve is 17.11mmHg / 8.33mmHg. Mild mitral annular calcification present. There is trace to mild mitral regurgitation. Mild tricuspid regurgitation present. There is moderate pulmonary hypertension. The right ventric ular systolic pressure, as measured by Doppler, is 53.73mmHg. Trace/mild (physiologic) pulmonic regurgitation. The aortic root size is normal. IVC Not well visulized. There is no pericardial effusion. CONCLUSIONS -------- 1. There is moderate concentric left ventricular hypertrophy. 2. Overall left ventricular systolic function is normal with, an EF between 60 - 65 %. 3. The right ventricle is mildly enlarged. 4. Normal LA size by volume 22+/-6 ml/m2. 5. Aortic valve is trileaflet and is mildly thickened. 6. Trace amount of aortic regurgitation. 7. Peak/mean gradient across the Aortic Valve is 17.11mmHg / 8.33mmHg. 8. Mild mitral annular calcification present. 9. There is trace to mild mitral regurgitation. 10. Mild tricuspid regurgitation present. 11. There is moderate pulmonary hypertension. 12. Trace/mild (physiologic) pulmonic regurgitation. 13. There is no pericardial effusion. TEA BAG MACHINE TENDER: Sonja Mars RDCS
[2020-03-05] MEDS: LEVOFLOXACIN 750 MG TAB PO SCH (14:12)
--- NOTE | 2020-03-05 14:30 | P.PN ---
Subjective Progress Note Date: 03/05/20 No new complaints today. Cough continues to bother her. plan for echo and repeat covid today. Objective - Vital Signs Vital signs: Vital Signs Temp 97.5 F L 03/05/20 10:04 Pulse 84 03/05/20 11:29 Resp 18 03/05/20 10:04 BP 160/80 03/05/20 11:16 Pulse Ox 97 03/05/20 10:04 Intake & Output 03/04/20 03/05/20 03/05/20 18:59 06:59 18:59 Intake Total 1550 Output Total 500 1000 Balance -500 550 Intake: Intake, IV Titration 900 Amount Sodium Chloride 0.9% 1, 900 000 ml @ 75 mls/hr IV . [id number] [facility] Rx#:[id number] Oral 650 Output: Urine 500 1000 Other: Voiding Method Diaper Incontinent Incontinent - Exam Gen: awake, alert HEENT: normocephalic, atraumatic, good hearing acuity, moist mucous membranes, positive JVD Resp: Moderate to diminished air exchange, no accessory muscle use, no wheezes, posterior crackles right greater than left CVS: good distal perfusion x 4, RRR, no murmurs, clicks, gallops GI: soft, NTTP, ND : no SPT, no CVAT, larson catheter not present MSK: no pitting edema, no clubbing Neuro: non-focal, no sensory deficits, appropriate tone Psych: cooperative, euthymic mood - Labs CBC & Chem 7: 03/03/20 08:45 03/03/20 08:45 Assessment and Plan Assessment: Acute COPD exacerbation -DuoNeb's [id number]-hhvnb and as needed -Continue with Solu-Medrol -Supplemental oxygen -Coronavirus testing - will order levofloxacin for pneumonia - echocardiogram for JVD, demonstrates elevated RVSP/pHTN, EF 60%, no WMA - PT/OT Inability to care for self at home -hot stick worker consult -PT consult Prerenal GEORGES -Continue with IV fluids -Monitor BMP Hyponatremia, likely secondary to poor oral intake -Continue with IV fluids and monitor BMP -Hold HCTZ and Losartan for now Chronic conditions: Hyperlipidemia -C/w home meds DVT prophylaxis -Heparin subq The patient is admitted with an anticipated greater than 2 midnight stay for evaluation of COPD exacerbation CODE STATUS: Full Code Discussed with: Patient, RN Anticipated discharge date: 2-[address]: Home/[facility]
[2020-03-05] MEDS: ATORVASTATIN 10 MG TAB PO SCH (20:29)
[2020-03-06] MEDS: guaiFENesin-Coden 100-10MG/5ML 10 ML CUP PO PRN ×2 (00:44→17:05)
[2020-03-06] MEDS: SODIUM CHLORIDE 0.9% 1,000 ML IV SCH (00:45)
[2020-03-06] MEDS: ASPIRIN 81 MG PO SCH (08:22)
[2020-03-06] MEDS: POTASSIUM CHLORIDE ER 10 MEQ TAB.ER.PRT PO SCH (08:22)
[2020-03-06] MEDS: methylPREDNISolone SOD SUCCI 40 MG/ML 1 ML VIAL IV SCH (08:22)
[2020-03-06] MEDS: FUROSEMIDE 20 MG TAB PO SCH (08:23)
[2020-03-06] MEDS: IPRATROPIUM-ALBUTEROL 3 ML NEB INHALATION SCH ×4 (09:30→19:17)
--- NOTE | 2020-03-06 12:41 | P.PN ---
Subjective Progress Note Date: 03/06/20 No new complaints. Objective - Vital Signs Vital signs: Vital Signs Temp 97.6 F 03/06/20 10:00 Pulse 78 03/06/20 10:00 Resp 17 03/06/20 07:20 BP 172/73 03/06/20 10:00 Pulse Ox 99 03/06/20 10:00 Intake & Output 03/05/20 03/06/20 03/06/20 18:59 06:59 18:59 Intake Total 600 Output Total 650 1400 150 Balance -650 -800 -150 Intake: Intake, IV Titration 600 Amount Sodium Chloride 0.9% 1, 600 000 ml @ 75 mls/hr IV . [id number] [facility] Rx#:[id number] Output: Urine 650 1400 Stool 150 Other: Voiding Method Incontinent Incontinent Incontinent - Exam Gen: awake, alert HEENT: normocephalic, atraumatic, good hearing acuity, moist mucous membranes, positive JVD Resp: Moderate to diminished air exchange, no accessory muscle use, no wheezes, posterior crackles right greater than left CVS: good distal perfusion x 4, RRR, no murmurs, clicks, gallops GI: soft, NTTP, ND : no SPT, no CVAT, larson catheter not present MSK: no pitting edema, no clubbing Neuro: non-focal, no sensory deficits, appropriate tone Psych: cooperative, euthymic mood - Labs CBC & Chem 7: 03/03/20 08:45 03/03/20 08:45 Assessment and Plan Assessment: Acute COPD exacerbation -DuoNeb's lsnxc-jeq-txoit and as needed -Continue with Solu-Medrol -Supplemental oxygen -Coronavirus testing - will order levofloxacin for pneumonia - echocardiogram for JVD, demonstrates elevated RVSP/pHTN, EF 60%, no WMA - PT/OT Inability to care for self at home -hospital food service worker consult -PT consult Prerenal GEORGES -Continue with IV fluids -Monitor BMP Hyponatremia, likely secondary to poor oral intake -Continue with IV fluids and monitor BMP -Hold HCTZ and Losartan for now Chronic conditions: Hyperlipidemia -C/w home meds DVT prophylaxis -Heparin subq The patient is admitted with an anticipated greater than 2 midnight stay for evaluation of COPD exacerbation CODE STATUS: Full Code Discussed with: Patient, RN Anticipated discharge date: 2-[address]: Home/[facility]
[2020-03-06] MEDS: ACETAMINOPHEN TAB 325 MG TAB PO PRN ×2 (14:37→20:58)
[2020-03-06] MEDS: ATORVASTATIN 10 MG TAB PO SCH (20:52)
[2020-03-07] MEDS: ACETAMINOPHEN TAB 325 MG TAB PO PRN ×2 (04:24→20:30)
[2020-03-07] MEDS: guaiFENesin-Coden 100-10MG/5ML 10 ML CUP PO PRN ×2 (04:24→20:31)
[2020-03-07] MEDS: IPRATROPIUM-ALBUTEROL 3 ML NEB INHALATION SCH ×2 (07:40→11:24)
[2020-03-07 07:54] LABS: Glucose,Whole Blood 88 mg/dL (75-99)
[2020-03-07] MEDS: methylPREDNISolone SOD SUCCI 40 MG/ML 1 ML VIAL IV SCH (08:59)
[2020-03-07] MEDS: POTASSIUM CHLORIDE ER 10 MEQ TAB.ER.PRT PO SCH (08:59)
[2020-03-07] MEDS: FUROSEMIDE 20 MG TAB PO SCH (08:59)
[2020-03-07] MEDS: ASPIRIN 81 MG PO SCH (08:59)
--- NOTE | 2020-03-07 13:19 | P.PN ---
Subjective Progress Note Date: 03/07/20 No new complaints today. Feels weak. Objective - Vital Signs Vital signs: Vital Signs Temp 97.8 F 03/07/20 10:00 Pulse 82 03/07/20 11:35 Resp 20 03/07/20 06:00 BP 177/69 03/07/20 10:00 Pulse Ox 98 03/07/20 10:00 Intake & Output 03/06/20 03/07/20 03/07/20 18:59 06:59 18:59 Intake Total 1100 1200 Output Total 3700 150 1200 Balance -2600 1050 -1200 Intake: Intake, IV Titration 600 600 Amount Sodium Chloride 0.9% 1, 600 600 000 ml @ 75 mls/hr IV . [id number] [facility] Rx#:[id number] Oral 500 600 Output: Urine 3550 1200 Stool 150 150 Other: Voiding Method Incontinent Incontinent Incontinent - Exam Gen: awake, alert HEENT: normocephalic, atraumatic, good hearing acuity, moist mucous membranes, positive JVD Resp: Moderate to diminished air exchange, no accessory muscle use, no wheezes, posterior crackles right greater than left CVS: good distal perfusion x 4, RRR, no murmurs, clicks, gallops GI: soft, NTTP, ND : no SPT, no CVAT, larson catheter not present MSK: no pitting edema, no clubbing Neuro: non-focal, no sensory deficits, appropriate tone Psych: cooperative, euthymic mood - Labs CBC & Chem 7: 03/03/20 08:45 03/03/20 08:45 Assessment and Plan Assessment: 1. Acute COPD exacerbation 2. Generalized Weakness and Physical Debility 3. GEORGES 4. HLD 79 year old woman with COPD, HLD presented from home with dyspnea, cough, generalized weakness and physical debility. She [facility]. Since that time, she has had minimal exercise capacity, and has grown weaker, needing 2p assist to get out of bed. She was to be cared for by her family from [place], but one of them had a COVID+ test and so they returned home to quarantine. On arrival, she was noted to have poor air exchange and 3L oxygen requirement thought to be from COPD, and crackles in the right base thought to be from pneumonia. She was started on solumedrol and levofloxacin, with plan to continue solumedrol for 5 days, and levofloxacin for 7 days. Solumedrol d/c'd on 02/04; levofloxacin due to be dc'd on 03/09. On physical exam, she had JVD noted as well, and underwent echo which showed elevated RVSP/pHTN, EF 60%, no WMA. 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 She was started on a low dose of lasix 20mg daily for this. She was accepted to SNF, and plan will be to discharge her on Sunday, 03/08. Acute COPD exacerbation -DuoNeb's as needed -Supplemental oxygen -Coronavirus testing - will order levofloxacin for pneumonia - echocardiogram for JVD, demonstrates elevated RVSP/pHTN, EF 60%, no WMA - lasix 20mg PO daily - PT/OT Inability to care for self at home -cut out worker consult -PT consult Prerenal GEORGES -Continue with IV fluids -Monitor BMP Hyponatremia, likely secondary to poor oral intake -Continue with IV fluids and monitor BMP -Hold HCTZ and Losartan for now Chronic conditions: Hyperlipidemia -C/w home meds DVT prophylaxis -Heparin subq The patient is admitted with an anticipated greater than 2 midnight stay for evaluation of COPD exacerbation CODE STATUS: Full Code Discussed with: Patient, RN Anticipated discharge date: 2-[address]: Home/[facility]
[2020-03-07] MEDS: LEVOFLOXACIN 750 MG TAB PO SCH (15:09)
[2020-03-07] MEDS: IPRATROPIUM-ALBUTEROL 3 ML NEB INHALATION PRN (15:12)
[2020-03-07] MEDS: ATORVASTATIN 10 MG TAB PO SCH (20:30)
[2020-03-08] MEDS: guaiFENesin-Coden 100-10MG/5ML 10 ML CUP PO PRN ×2 (08:02→22:01)
[2020-03-08] MEDS: ACETAMINOPHEN TAB 325 MG TAB PO PRN ×2 (08:02→20:32)
[2020-03-08] MEDS: ASPIRIN 81 MG PO SCH (08:02)
[2020-03-08] MEDS: guaiFENesin 600 MG TABLET.ER PO PRN ×2 (08:02→20:33)
[2020-03-08] MEDS: FUROSEMIDE 20 MG TAB PO SCH (08:03)
[2020-03-08] MEDS: POTASSIUM CHLORIDE ER 10 MEQ TAB.ER.PRT PO SCH (08:03)
[2020-03-08] MEDS: IPRATROPIUM-ALBUTEROL 3 ML NEB INHALATION PRN ×2 (10:05→15:35)
[2020-03-08] MEDS: ATORVASTATIN 10 MG TAB PO SCH (20:33)
[2020-03-08] MEDS: polyethylene glycoL 3350 17 GM POWD.PACK PO PRN (22:01)
--- NOTE | 2020-03-09 00:31 | P.PN ---
Progress Note - Text Progress Note Date: 03/08/20 interval history: 79 year old woman with COPD, HLD presented from home with dyspnea, cough, gene ralized weakness and physical debility. She was in SNF for one month following hospitalization for TKA. Since that time, she has had minimal exercise capacity, and has grown weaker, needing 2p assist to get out of bed. She was to be cared for by her family from [place], but one of them had a COVID+ test and so they returned home to quarantine. On arrival, she was noted to have poor air exchange and 3L oxygen requirement thought to be from COPD, and crackles in the right base thought to be from pneumonia. She was started on solumedrol and levofloxacin, with plan to continue solumedrol for 5 days, and levofloxacin for 7 days. Solumedrol d/c'd on 02/04; levofloxacin due to be dc'd on 03/09. Today-sitting up. Breathing better.eating about 25% of her meals. Review of systems: Was done for constitutional, cardiovascular, GI, pulmonary. relevant finding as above Active Medications Acetaminophen (Acetaminophen Tab 325 Mg Tab) 650 mg PO Q6HR PRN PRN Reason: Fever and/ or Pain Last Admin: 03/08/20 20:32 Dose: 650 mg Documented by: Albuterol/Ipratropium (Ipratropium-Albuterol 3 Ml Neb) 3 ml INHALATION RT-Q4H PRN PRN Reason: Shortness Of Breath Or Wheezing Last Admin: 03/08/20 15:35 Dose: 3 ml Documented by: Artificial Tears (Artificial Tears-Hypromellose Drops 15 Ml Btl) 2 drops BOTH EYES QID PRN PRN Reason: Dry Eye(s) Last Admin: 03/05/20 17:03 Dose: 2 drops Documented by: Aspirin (Aspirin 81 Mg) 81 mg PO DAILY [facility] Last Admin: 03/08/20 08:02 Dose: 81 mg Documented by: Atorvastatin Calcium (Atorvastatin 10 Mg Tab) 10 mg PO HS [facility] Last Admin: 03/08/20 20:33 Dose: 10 mg Documented by: Furosemide (Furosemide 20 Mg Tab) 20 mg PO DAILY [facility] Last Admin: 03/08/20 08:03 Dose: 20 mg Documented by: Guaifenesin (Guaifenesin 600 Mg Tablet.Er) 600 mg PO BID PRN PRN Reason: Congestion Last Admin: 03/08/20 20:33 Dose: 600 mg Documented by: Guaifenesin/Codeine Phosphate (Guaifenesin-Coden 100-10mg/5ml 10 Ml Cup) 10 ml PO Q6H PRN PRN Reason: Cough Last Admin: 03/08/20 22:01 Dose: 10 ml Documented by: Levofloxacin (Levofloxacin 750 Mg Tab) 750 mg PO Q48H [facility] Last Admin: 03/07/20 15:09 Dose: 750 mg Documented by: Nifedipine (Nifedipine Xl 60 Mg Tab.Er.24) 60 mg PO QAM [facility] Last Admin: 03/08/20 08:03 Dose: 60 mg Documented by: Polyethylene Glycol (Polyethylene Glycol 3350 17 Gm Powd.Pack) 17 gm PO DAILY PRN PRN Reason: Constipation Last Admin: 03/08/20 22:01 Dose: 17 gm Documented by: Potassium Chloride (Potassium Chloride Er 10 Meq Tab.Er.Prt) 10 meq PO DAILY [facility] Last Admin: 03/08/20 08:03 Dose: 10 meq Documented by: On examination: VITAL SIGNS: [97.8, 88, 18, 138/75, 96% on room air GENERAL APPEARANCE: laying in bed, not in distress HEENT: Normal external appearance of nose and ear. Oral cavity normal EYES: Pupils equal. Conjunctiva normal. NECK: JVD not raised. Mass not palpable. RESPIRATORY: Respiratory effort increasedl. Lungs decreased breath sounds CARDIOVASCULAR: First and second sounds normal. No edema. ABDOMEN: Soft. Liver and spleen not palpable. No tenderness. No mass palpable. PSYCHIATRY: Alert and oriented x3. Mood and affect normal. INVESTIGATIONS, reviewed in the clinical context: white count 6.6 hemoglobin 11.6 potassium 4.7 bun 55 creatinine 1.45 Previous testing: COVID 19 PCR not detected-March 03 COVID 19 [id number] Chest x-ray-does not report any infiltrates assessment: -Acute COPD exacerbation -Medical asthenia -chronic kidney disease stage III patient's creatinine was 1.51 -No acute kidney injury -Hyponatremia, suspect hypoosmolar on presentation -Possibly asymptomatic COVID 19 Plan: Continue current medication treatment plan. Encourage oral intake.MEHREEN Levaquin.put the patient on dexamethasone and Lovenox. Check CRP and d-dimer
[2020-03-09] MEDS: guaiFENesin 600 MG TABLET.ER PO PRN ×2 (08:45→20:33)
[2020-03-09] MEDS: dexAMETHasone 2 MG TAB PO SCH (08:45)
[2020-03-09] MEDS: guaiFENesin-Coden 100-10MG/5ML 10 ML CUP PO PRN ×2 (08:45→20:33)
[2020-03-09] MEDS: ASPIRIN 81 MG PO SCH (08:45)
[2020-03-09] MEDS: ENOXAPARIN 40 MG/0.4 ML SYRINGE SQ SCH (08:46)
[2020-03-09] MEDS: FUROSEMIDE 20 MG TAB PO SCH (08:46)
[2020-03-09] MEDS: POTASSIUM CHLORIDE ER 10 MEQ TAB.ER.PRT PO SCH (08:46)
[2020-03-09] MEDS: IPRATROPIUM-ALBUTEROL 3 ML NEB INHALATION PRN ×2 (08:55→12:09)
[2020-03-09 11:48] VITALS: BMI 42.4
[2020-03-09] MEDS: ACETAMINOPHEN TAB 325 MG TAB PO PRN ×2 (17:09→22:50)
[2020-03-09] MEDS: LEVOFLOXACIN 750 MG TAB PO SCH (17:10)
[2020-03-09] MEDS: polyethylene glycoL 3350 17 GM POWD.PACK PO PRN (17:10)
[2020-03-09] MEDS: ATORVASTATIN 10 MG TAB PO SCH (20:33)
--- NOTE | 2020-03-09 21:16 | P.PN ---
Progress Note - Text Progress Note Date: 03/09/20 interval history: 79 year old woman with COPD, HLD presented from home with dyspnea, cough, gene ralized weakness and physical debility. She was in SNF for one month following hospitalization for TKA. Since that time, she has had minimal exercise capacity, and has grown weaker, needing 2p assist to get out of bed. She was to be cared for by her family from [place], but one of them had a COVID+ test and so they returned home to quarantine. On arrival, she was noted to have poor air exchange and 3L oxygen requirement thought to be from COPD, and crackles in the right base thought to be from pneumonia. She was started on solumedrol and levofloxacin, Today-looking better. Oral intake is improved. Short of breath. Review of systems: Was done for constitutional, cardiovascular, GI, pulmonary. relevant finding as above On examination: VITAL SIGNS: 97.5, 94, 17, 166 x 64, 3% on 4 L GENERAL APPEARANCE: Sitting up not in distress HEENT: Normal external appearance of nose and ear. Oral cavity normal EYES: Pupils equal. Conjunctiva normal. NECK: JVD not raised. Mass not palpable. RESPIRATORY: Respiratory effort increasedl. Lungs decreased breath sounds CARDIOVASCULAR: First and second sounds normal. No edema. ABDOMEN: Soft. Liver and spleen not palpable. No tenderness. No mass palpable. PSYCHIATRY: Alert and oriented x3. Mood and affect normal. INVESTIGATIONS, reviewed in the clinical context: D-dimer 5.69, CRP 2.6 Previous testing white count 6.6 hemoglobin 11.6 potassium 4.7 bun 55 creatinine 1.45 Previous testing: COVID 19 PCR not detected-March 03 COVID 19 [id number] Chest x-ray-does not report any infiltrates assessment: -Acute COPD exacerbation -Medical asthenia -chronic kidney disease stage III patient's creatinine was 1.51 -No acute kidney injury -Hyponatremia, suspect hypoosmolar on presentation -Possibly asymptomatic COVID 19 Plan: Continue current medication treatment plan. Possibly have a bed at [facility] tomorrow.
[2020-03-10 07:01] LABS: Basophils % (A) 0 %; Eosinophils # (A) 0.2 k/uL (0-0.7); Eosinophils % (A) 1 %; HCT 39.7 % (34.0-46.0); HGB 12.2 gm/dL (11.4-16.0); Lymphocytes # (A) 0.9 k/uL (1.0-4.8); Lymphocytes % (A) 6 %; MCH 29.9 pg (25.0-35.0); MCHC 30.7 g/dL (31.0-37.0); MCV 97.3 fL (80.0-100.0); Mean Platelet Volume 7.3; Monocytes # (A) 0.4 k/uL (0-1.0); Monocytes % (A) 2 %; Neutrophils # (A) 13.7 k/uL (1.3-7.7); Neutrophils % (A) 90 %; Platelet Count 241 k/uL (150-450); RBC 4.09 m/uL (3.80-5.40); RDW 13.9 % (11.5-15.5); WBC 15.3 k/uL (3.8-10.6)
[2020-03-10] MEDS: dexAMETHasone 2 MG TAB PO SCH (07:38)
[2020-03-10] MEDS: ENOXAPARIN 40 MG/0.4 ML SYRINGE SQ SCH (07:38)
[2020-03-10] MEDS: polyethylene glycoL 3350 17 GM POWD.PACK PO PRN (07:38)
[2020-03-10] MEDS: ASPIRIN 81 MG PO SCH (07:39)
[2020-03-10] MEDS: ACETAMINOPHEN TAB 325 MG TAB PO PRN ×2 (07:39→15:06)
[2020-03-10] MEDS: FUROSEMIDE 20 MG TAB PO SCH (07:39)
[2020-03-10] MEDS: POTASSIUM CHLORIDE ER 10 MEQ TAB.ER.PRT PO SCH (07:39)
[2020-03-10 11:24] LABS: African American GFR (CKD) 61.2 (60.0-200.0); Anion Gap 5.9 mmol/L (4.00-12.00); Calcium 11.4 mg/dL (8.7-10.3); Carbon Dioxide 32.1 mmol/L (21.6-31.8); Non-African American GFR(CKD) 52.8 (60.0-200.0); Potassium 4.3 mmol/L (3.5-5.5)
[2020-03-10] MEDS: ALBUTEROL HFA INHALER INHALATION PRN ×2 (11:52→15:31)
--- NOTE | 2020-03-10 14:31 | P.DS ---
Providers Date of admission: 03/02/20 23:16 Expected date of discharge: 03/10/20 Attending physician: Kasi Sanchez Primary care physician: Jovani Duarte MD Hospital Course: interval history: 79 year old woman with COPD, hyperlipidemia presented from home with dyspnea, cough, generalized weakness and physical debility. She was in SNF for one month following hospitalization for TKA. Since that time, she has had minimal exercise capacity, and has grown weaker, needing 2p assist to get out of bed. She was to be cared for by her family from [place], but one of them had a COVID+ test and so they returned home to quarantine. On arrival, she was noted to have poor air exchange and 3L oxygen requirement thought to be from COPD, and crackles in the right base thought to be from pneumonia. She was started on solumedrol and levofloxacin, . Initial coronavirus testing was negative. He did come back positive. Antibiotic was discontinued. Swished over to dexamethasone and Lovenox. Today-feeling better. Appetite has picked up. Feels weak. Has been accepted at inpatient rehab. Eating about 75%. Discussed with patient. Discussed with social worker clinical. White count increased from steroids Discussion and discharge planning more than 35 minutes On examination: VITAL SIGNS: 97.7, 84, 18, 131/75, 92% on 4 L GENERAL APPEARANCE: Sitting up not in distress HEENT: Normal external appearance of nose and ear. Oral cavity normal EYES: Pupils equal. Conjunctiva normal. NECK: JVD not raised. Mass not palpable. RESPIRATORY: Respiratory effort increasedl. Lungs decreased breath sounds CARDIOVASCULAR: First and second sounds normal. No edema. ABDOMEN: Soft. Liver and spleen not palpable. No tenderness. No mass palpable. PSYCHIATRY: Alert and oriented x3. Mood and affect normal. INVESTIGATIONS, reviewed in the clinical context: White count 15.3 hemoglobin 12.2 potassium 4.3 creatinine 1 D-dimer 5.69, CRP 2.6 Previous testing white count 6.6 hemoglobin 11.6 potassium 4.7 bun 55 creatinine 1.45 Previous testing: COVID 19 PCR not detected-March 03 COVID 19 [id number] Chest x-ray-does not report any infiltrates assessment: -Acute COPD exacerbation, and an ex-smoker -Medical asthenia -chronic kidney disease stage 2 -Acute kidney injury likely prerenal -Hyponatremia, suspect hypoosmolar on presentation-improved -Possibly asymptomatic COVID 19 Disposition: [facility] Patient Condition at Discharge: Stable Plan - Discharge Summary New Discharge Prescriptions: New Artificial Tears-Hypromellose [Artificial Tear Drops] 2 drops BOTH EYES QID PRN bottle PRN Reason: Dry Eye(S) dexAMETHasone [Hexadrol] 6 mg PO DAILY 8 Days tab Furosemide [Lasix] 20 mg PO DAILY tab Atorvastatin [Lipitor] 10 mg PO HS tab Enoxaparin [Lovenox] 40 mg SQ DAILY syringe Albuterol Inhaler [Ventolin Hfa Inhaler] 2 puff INHALATION RT-Q4H PRN puff PRN Reason: Shortness Of Breath Or Wheezin Continue Losartan [Cozaar] 50 mg PO HS NIFEdipine [NIFEdipine ER] 60 mg PO QAM guaiFENesin [Mucinex] 600 mg PO BID PRN PRN Reason: Congestion Aspirin [Adult Low Dose Aspirin EC] 81 mg PO DAILY Cbd Salve 1 applic TOPICAL BID PRN PRN Reason: Pain Fiber-Tab 650mg 1 tab PO DAILY Lansoprazole [Prevacid] 15 mg PO DAILY polyethylene glycoL 3350 [Miralax] 17 gm PO DAILY PRN PRN Reason: Constipation Potassium Chloride [K-Tab ER] 8 meq PO DAILY Cholecalciferol [Vitamin D3 (25 Mcg = 1000 Iu)] 2,000 unit PO DAILY Changed Acetaminophen Tab [Tylenol] 500 mg PO Q6H PRN #0 PRN Reason: Pain Discontinued Simvastatin 20 mg PO HS Omeprazole [PriLOSEC] 20 mg PO DAILY hydroCHLOROthiazide 25 mg PO DAILY Discharge Medication List Losartan [Cozaar] 50 mg PO HS 12/18/13 [History] NIFEdipine [NIFEdipine ER] 60 mg PO QAM 12/18/13 [History] Aspirin [Adult Low Dose Aspirin EC] 81 mg PO DAILY 01/30/20 [History] Cbd Salve 1 applic TOPICAL BID PRN 01/30/20 [History] guaiFENesin [Mucinex] 600 mg PO BID PRN 01/30/20 [History] Cholecalciferol [Vitamin D3 (25 Mcg = 1000 Iu)] 2,000 unit PO DAILY 03/02/20 [History] Fiber-Tab 650mg 1 tab PO DAILY 03/02/20 [History] Lansoprazole [Prevacid] 15 mg PO DAILY 03/02/20 [History] Potassium Chloride [K-Tab ER] 8 meq PO DAILY 03/02/20 [History] polyethylene glycoL 3350 [Miralax] 17 gm PO DAILY PRN 03/02/20 [History] Acetaminophen Tab [Tylenol] 500 mg PO Q6H PRN #0 03/10/20 [Rx] Albuterol Inhaler [Ventolin Hfa Inhaler] 2 puff INHALATION RT-Q4H PRN puff 03/10/20 [Rx] Artificial Tears-Hypromellose [Artificial Tear Drops] 2 drops BOTH EYES QID PRN bottle 03/10/20 [Rx] Atorvastatin [Lipitor] 10 mg PO HS tab 03/10/20 [Rx] Enoxaparin [Lovenox] 40 mg SQ DAILY syringe 03/10/20 [Rx] Furosemide [Lasix] 20 mg PO DAILY tab 03/10/20 [Rx] dexAMETHasone [Hexadrol] 6 mg PO DAILY 8 Days tab 03/10/20 [Rx] Follow up Appointment(s)/Referral(s): Jovani Duarte MD [Primary Care Provider] - As Needed
[2020-03-10] MEDS: guaiFENesin-Coden 100-10MG/5ML 10 ML CUP PO PRN (15:07)
[2020-03-10 15:24] VITALS: BP 143/73; PULSE 85; RESP 17; TEMP 97.6
== END 2020-03-10 16:07 | disposition home health service (06) | DRG 178 ==
LOC: EC 18:27 → 1SOBS 20:06 → OBSVTOIN 23:16 → 4SSUR 03-03 15:35
PROVIDERS: ADMIT Hospitalist; ATTEND Hospitalist
DX: U07.1 COVID-19 (principal); J44.1 Chronic obstructive pulmonary disease with (acute) exacerbation; N17.9 Acute kidney failure, unspecified; E87.1 Hypo-osmolality and hyponatremia; N18.30 Chronic kidney disease, stage 3 unspecified; I49.3 Ventricular premature depolarization; E78.5 Hyperlipidemia, unspecified; I12.9 Hypertensive chronic kidney disease with stage 1 through stage 4 chronic kidney disease, or unspecified chronic kidney disease; I27.20 Pulmonary hypertension, unspecified; Z79.01 Long term (current) use of anticoagulants; Z79.82 Long term (current) use of aspirin; Z79.899 Other long term (current) drug therapy; Z80.0 Family history of malignant neoplasm of digestive organs; Z80.7 Family history of other malignant neoplasms of lymphoid, hematopoietic and related tissues; Z85.41 Personal history of malignant neoplasm of cervix uteri; Z85.828 Personal history of other malignant neoplasm of skin; Z87.891 Personal history of nicotine dependence; Z90.710 Acquired absence of both cervix and uterus; Z92.3 Personal history of irradiation; Z96.653 Presence of artificial knee joint, bilateral; Z96.611 Presence of right artificial shoulder joint; Z90.89 Acquired absence of other organs; Z88.1 Allergy status to other antibiotic agents; Z88.2 Allergy status to sulfonamides; Z88.8 Allergy status to other drugs, medicaments and biological substances; Z87.01 Personal history of pneumonia (recurrent); K59.09 Other constipation
CPT/HCPCS: 36415; 71045; 80048; 80053; 80076; 83735; 85025; 85379; 86140; 87635; 93005; 93306; 94640; 94667; 96374; 99285